=== PATIENT | female | born 1935 | race Caucasian/White ===

== ENCOUNTER 2020-12-21 23:19 | Emergency (ER) | payer MEDICARE, SELFPAY ==
[2020-12-21 23:24] VITALS: BP 145/57; PULSE 75; RESP 17; TEMP 36.6; O2SAT 97; BMI 36.6
--- NOTE | 2020-12-21 23:48 | XRR_ITS ---
PROCEDURE INFORMATION: Exam: XR Chest Exam date and time: 12/21/2020 11:48 PM Age: 85 years old Clinical indication: Dyspnea TECHNIQUE: Imaging protocol: XR of the chest. Views: 1 view. COMPARISON: CR Chest 1 [place] [id number] 11/19/2014 1:07 PM FINDINGS: Lungs: Unremarkable. No consolidation. Pleural spaces: Unremarkable. No pleural effusion. No pneumothorax. Heart/Mediastinum: Unremarkable. No cardiomegaly. Bones/joints: Unremarkable. Other findings: Stable postoperative changes over the right shoulder. XR/XR chest 1V portable [id number] IMPRESSION: No acute findings.
--- NOTE | 2020-12-21 23:48 | ED_ITS ---
HPI - General Adult General: Chief complaint: General Medical Stated complaint: SOB/HYPOGLYCEMIA Time Seen by Provider: 12/21/20 23:44 History of Present Illness: HPI narrative: Patient arrives via ambulance with complaint of bronchitis. Blood sugar got down in the 70s earlier today. Patient says she has been eating good since she had not felt well. She says she is on antibiotics and steroids presently. Patient has no complaints of shortness of breath. Sugars 46 when EMS arrived. Onset (ago): day(s) Associated symptoms: Reports no associated symptoms; Deny chest pain, dyspnea, headache(s), nausea, rash or vomiting Review of Systems Const: Denies: fever(s), chills or body aches Eyes: Denies: change in vision or blurry vision ENMT: Denies: throat pain or nasal congestion Card: Denies: chest pain or dyspnea on exertion Resp: Reports: non-productive cough; Denies: dyspnea or productive cough GI: Denies: abdominal pain, nausea or vomiting Musc: Denies: extremity pain Skin/Breast: Denies: rash Neuro: Denies: headache(s) Psych: Denies: anxiety or depression Endo: Reports: other (Low blood sugar today and down in 70s.) Esvin/Lymph: Denies: easy bruising Physical Exam Const: COMMON NORMALS: no acute distress, average body habitus and patient oriented x3 HENMT: COMMON NORMALS: normocephalic HEAD & SCALP: normal to inspection and normocephalic FACE & SINUS: normal facial exam Eye: COMMON NORMALS: conjunctivae normal GENERAL EYE: appearance normal, both eyes and all related structures CONJUNCTIVA: Yes conjunctivae normal Neck/C-Spine: COMMON NORMALS: no JVD Chest: COMMONS NORMALS: normal inspection of the chest Resp: COMMON NORMALS: normal respiratory effort and clear to auscultation bilaterally AUSCULTATION: clear to auscultation bilaterally Cardio: COMMON NORMALS: no JVD, regular rate and regular rhythm RATE: regular rate RHYTHM: regular rhythm GI: COMMON NORMALS: Normal to inspection, nondistended, normoactive bowel sounds present Extremity: COMMON NORMALS: normal to inspection and full ROM Neuro: COMMON NORMALS: patient oriented x3 Course Vital Signs: Vital signs: Vital Signs Temperature 97.8 F 12/21/20 23:24 Pulse Rate 75 12/21/20 23:24 Respiratory Rate 17 12/21/20 23:24 Blood Pressure 145/57 12/21/20 23:24 Pulse Oximetry 97 12/21/20 23:24 MDM - General Adult MDM Narrative: Medical decision making narrative: Labs not crossed over into the system for some reason. Reviewed labs with Dr. Momin. Patient does have chronic renal problems creatinine BUN same as it was back in 94. Patient does not appear dehydrated. Blood sugar 68. Patient's was 40 some at home. Patient not eating well since diagnosis of bronchitis. Patient says she feels fine. Says food does not taste good. Will try steroid to help increase appetite increase sugar. Hold insulin for present and check sugars 4 times a day. Lab Data: Labs: Lab Results 12/21/20 12/21/20 Range/Units 00:43 00:43 WBC 9.1 (4.0-10.0) 10^3/ uL RBC 3.41 L (4.1-5.3) 10^6/u L Hgb 10.0 L (11.5-15.3) g/dL Hct 32.3 L (37.0-47.0) % MCV 94.7 (81-99) fL MCH 29.3 (28.0-34.0) pg MCHC 31.0 (30.0-36.0) g/dL RDW 14.6 (12.1-15.1) % Plt Count 300 (130-400) 10^3/c mm MPV 9.5 (7.4-10.4) fL Neut % (Auto) 81.2 % Lymph % (Auto) 13.1 % [place] % (Auto) 3.7 % Eos % (Auto) 0.8 % Baso % (Auto) 0.8 % Neut # (Auto) 7.42 (1.8-7.7) 10^3/u L Lymph # (Auto) 1.2 (0.8-4.8) 10^3/u L [place] # (Auto) 0.3 (0.2-0.9) 10^3/u L Eos # (Auto) 0.1 (0.0-0.8) 10^3/u L Baso # (Auto) 0.1 (0.0-0.1) 10^3/u L Nucleated RBC % (a uto) 0 % Nucleated RBCs # 0.0 /100WBC Sodium 132 L (136-145) mmol/L Potassium 5.3 H (3.5-5.1) mmol/L Chloride 102 (98-107) mmol/L Carbon Dioxide 20 L (22-29) mmol/L Anion Gap 15.3 (5-19) BUN 33 H (8-23) mg/dL Creatinine 2.1 H (0.5-0.9) mg/dL GFR Calculation Not Reportable Glucose 68 (65-115) mg/dL Calculated Osmolal ity 280 L (285-295) mOsm/k g Calcium 8.1 L (8.5-10.5) mg/dL Discharge Plan Discharge Patient Disposition: Home Clinical Impression: Bronchitis, Poor appetite Chronic renal failure Qualifiers: Chronic kidney disease stage: stage 2 (mild) Qualified Code(s): N18.2 - Chronic kidney disease, stage 2 (mild) Condition: Stable Prescriptions: New dexamethasone 6 mg tablet 6 mg PO DAILY Qty: 7 RF: 0 Discharge Orders: Discharge ED (Routine); Ordered 12/22/20 Ordered By: Antoni Murdock Referrals: Joaquin Paulino MD [Primary Care Provider] - Discharge Diet: As Directed Discharge Activity: Increase activity as tolerated Patient Instructions: Diabetic Hypoglycemia (ED), Acute Bronchitis (ED) Activity Restrictions/Additional Instructions: Hold insulin until started eating better. Check sugars 3-4 times a day. Increase carbohydrates in meals. Give medication directed. Follow-up Dr. Paulino this week. Coding Level of Care Code ED Granite Fabricator for Chg Fwd Exam Comprehensive
[2020-12-22] VITALS: BP 116/85; O2SAT 100
[2020-12-22 00:41] VITALS: BP 150/61; O2SAT 96
[2020-12-22 00:49] LABS: Basophils # 0.1 10^3/uL (0.0-0.1); Basophils % 0.8 %; Eosinophils # 0.1 10^3/uL (0.0-0.8); Eosinophils % 0.8 %; Hematocrit 32.3 % (37.0-47.0); Lymphocytes # 1.2 10^3/uL (0.8-4.8); Lymphocytes % 13.1 %; Mean Corpuscular Hemoglobin 29.3 pg (28.0-34.0); Mean Corpuscular Volume 94.7 fL (81-99); Mean Platelet Volume 9.5 fL (7.4-10.4); Monocytes # 0.3 10^3/uL (0.2-0.9); Monocytes % 3.7 %; Neutrophils # 7.42 10^3/uL (1.8-7.7); Neutrophils % 81.2 %; Nucleated Red Blood Cells % 0 %; Platelet Count 300 10^3/cmm (130-400); Red Blood Count 3.41 10^6/uL (4.1-5.3); Red Cell Distribution Width 14.6 % (12.1-15.1); White Blood Count 9.1 10^3/uL (4.0-10.0)
[2020-12-22 01:11] VITALS: BP 166/77; O2SAT 95
[2020-12-22 01:19] LABS: Anion Gap 15.3 (5-19); Blood Urea Nitrogen 33 mg/dL (8-23); Calcium 8.1 mg/dL (8.5-10.5); Carbon Dioxide 20 mmol/L (22-29); Chloride 102 mmol/L (98-107); Glucose 68 mg/dL (65-115); Osmolality Calculated 280 mOsm/kg (285-295); Potassium 5.3 mmol/L (3.5-5.1); Sodium 132 mmol/L (136-145)
[2020-12-22 01:41] VITALS: BP 165/80; O2SAT 96
[2020-12-22 02:00] VITALS: BP 141/89; O2SAT 96
[2020-12-22] MEDS: dexamethasone 4 mg Tablet 10 MG PO (02:10)
[2020-12-22 03:34] VITALS: BP 141/89; O2SAT 96
[2020-12-22 07:19] LABS: Glucose Point of Care 89 mg/dL (70-110)
== END 2020-12-22 02:10 | disposition home or self-care (01) ==
PROVIDERS: Emergency Provider Nurse Practitioner Family; PCP Family Medicine
DX: J40 Bronchitis, not specified as acute or chronic (principal); R63.0 Anorexia; N18.2 Chronic kidney disease, stage 2 (mild)
CPT/HCPCS: 36416; 71045; 80048; 82962; 85025; 99283; J8540

== ENCOUNTER 2020-12-26 00:28 | Observation (INO) | payer MEDICARE, SELFPAY ==
[2020-12-26] VITALS (10 sets, daily range): BP systolic 124–186; BP diastolic 81–105; PULSE 71–113; RESP 18–20; TEMP 36.3–37.1; O2SAT 95–100; BMI 36.6
--- NOTE | 2020-12-26 00:34 | ECG_ITS ---
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 Measurements Intervals [place] Rate: 86 P: 70 [place]: 196 QRS: -43 QRSD: 117 T: 34 QT: 378 QTc: 454 Interpretive Statements SINUS RHYTHM MARKED LEFT AXIS DEVIATION [QRS AXIS < -30] PATTERN CONSISTENT WITH PULMONARY DISEASE MODERATE INTRAVENTRICULAR CONDUCTION DELAY [105+ ms QRS DURATION, 80+ ms Q/S IN V1/V2, NO Q AND 60+ ms R IN I/aVL/V5/V6] MINIMAL ST DEPRESSION [0.025+ mV ST DEPRESSION] WARNING: DATA QUALITY MAY AFFECT INTERPRETATION No previous ECG available for comparison Electronically Signed On 12-26-2020 14:54:29 CDT by Gretel Hall M.D. [id number]
--- NOTE | 2020-12-26 00:34 | XRR_ITS ---
PROCEDURE INFORMATION: Exam: XR Chest Exam date and time: 12/26/2020 12:34 AM Age: 85 years old Clinical indication: Shortness of breath; Prior surgery; Surgery type: Shoulder; Patient HX: SOB; Additional info: Cough TECHNIQUE: Imaging protocol: XR of the chest. Views: 1 view. COMPARISON: CR (CHEST, ) 12/22/2020 12:01 AM FINDINGS: Lungs: There are some increased linear opacities predominately within the lower hemithoraces, left slightly more prominent than right likely representing atelectasis. An interstitial pneumonitis cannot be entirely excluded. Pleural spaces: Unremarkable. No pleural effusion. No pneumothorax. Heart/Mediastinum: Unremarkable. No cardiomegaly. Bones/joints: Status post open reduction internal fixation fracture proximal right humerus appearing stable compared with 12/22/2020. XR/XR chest 1V portable [id number] IMPRESSION: 1.. Probable bilateral basilar atelectasis although an interstitial pneumonitis cannot be entirely excluded.
--- NOTE | 2020-12-26 00:35 | W.ED.AMS ---
HPI - Altered Mental Status General: Chief Complaint: Altered Mental Status Stated Complaint: low bg Time Seen by Provider: 12/26/20 00:31 History of Present Illness: HPI narrative: This patient is an 85-year-old female who presents to the emergency department with complaint of low glucose. Patient has a history of insulin-dependent diabetes but was told to stop her insulin at home because it is difficult to maintain a proper glucose level. Patient has been having tendency to getting hypoglycemic. EMS states that they gave her some oral glucose due to mental status change and immediately awakened and was at her normal baseline. States when they checked her glucose after this her glucose was 87. Upon arrival to the emergency department glucose was down to 65. Patient was seen in the emergency department 4 days ago with a similar complaint at that time with hypoglycemia. We will do medical evaluation treat as needed MD complaint: confusion Onset (ago): minute(s) Severity: similar to previous episodes Associated symptoms: Deny depression Review of Systems General: Reports: 10 or more systems reviewed and unremarkable except in HPI and below Const: Denies: fever(s), chills, body aches or fatigue Eyes: Denies: change in vision or blurry vision ENMT: Denies: throat pain, hoarseness or mouth pain Card: Denies: chest pain, palpitations, irregular heart rhythm, edema, swelling of feet/ankles or lightheadedness Resp: Denies: dyspnea, productive cough, non-productive cough, wheezing or pain on inspiration GI: Denies: abdominal pain, nausea or vomiting : Denies: flank pain, difficulty voiding, dysuria, urinary frequency, urinary urgency or urinary hesitancy Musc: Denies: neck pain, back pain, extremity pain, extremity swelling, joint pain, joint swelling, joint redness, joint warmth or limited range of motion Skin/Breast: Denies: rash, pruritus, erythema or skin tenderness Neuro: Denies: headache(s), numbness in extremities or weakness in extremities Psych: Denies: anxiety or depression Physical Exam Const: COMMON NORMALS: no acute distress, average body habitus, patient oriented x3, no limitations, healthy appearing, alert and well nourished HENMT: COMMON NORMALS: normocephalic, atraumatic, hearing grossly normal bilaterally, external ears normal, EAC's normal, TM's normal bilaterally, Normal external nose present, Normal nasal mucous membranes and turbinates present, moist oral mucous membranes, oropharynx normal, dentition normal and gingiva normal HEAD & SCALP: normocephalic and atraumatic NOSE: Normal external nose present and Normal nasal mucous membranes and turbinates present EXTERNAL EAR: Yes external ears normal EXTERNAL AUDITORY CANAL: EAC's normal TYMPANIC MEMBRANE: TM's normal bilaterally Neck/C-Spine: COMMON NORMALS: full ROM, no lymphadenopathy, supple, no meningeal signs, no JVD, Thyroid normal and No carotid bruits THYROID: Thyroid normal Chest: COMMONS NORMALS: normal inspection of the chest, normal palpation of entire chest wall, normal inspection of the breasts and normal palpation of the breasts Resp: COMMON NORMALS: normal respiratory effort, No retractions, No use of accessory muscles, clear to auscultation bilaterally and percussion normal AUSCULTATION: clear to auscultation bilaterally PERCUSSION: percussion normal Cardio: COMMON NORMALS: no JVD, regular rate, regular rhythm, S1 normal heart sound present, S2 normal heart sound present, No gallops present (Cardio), No clicks present (Cardio), No murmurs present (Cardio), No rub (Cardio) and Peripheral pulses 2+ throughout RATE: regular rate RHYTHM: regular rhythm HEART SOUNDS: S1 normal heart sound present and S2 normal heart sound present PERIPHERAL PULSES: Peripheral pulses 2+ throughout GI: COMMON NORMALS: Normal to inspection, nondistended, normoactive bowel sounds present, Soft to palpation, non-tender, No hepatosplenomegaly present, no masses and no bruits PALPATION: Yes Soft to palpation and Yes No hepatosplenomegaly present Back/Pelvis: COMMON NORMALS: thoracic and lumbar spine normal to inspection, no thoracic nor lumbar tenderness, thoraco-lumbar ROM normal and straight leg raise negative bilaterally Extremity: COMMON NORMALS: normal to inspection, full ROM, capillary refill normal, no joint enlargement, no clubbing, cyanosis or edema, no calf tenderness and no pedal edema Neuro: COMMON NORMALS: patient oriented x3 SENSORIUM/ORIENTATION: Yes alert MENINGEAL SIGNS: Yes no meningeal signs Course Consultations: Consultation #1: Discussed at length with hospitalist. He is agreed to admit the patient for further observation due to hypoglycemia. Patient stable at this time. He will see patient write additional orders Time: 00:55 Vital Signs: Vital signs: Vital Signs Temperature 98.7 F 12/26/20 01:26 Pulse Rate 80 12/26/20 02:02 Respiratory Rate 20 H 12/26/20 02:02 Blood Pressure 162/100 12/26/20 02:02 Pulse Oximetry 99 12/26/20 02:02 MDM - Altered Mental Status MDM Narrative: Medical decision making narrative: This patient is an 85-year-old female who presents to the emergency department with complaint of low glucose. Patient has a history of insulin-dependent diabetes but was told to stop her insulin at home because it is difficult to maintain a proper glucose level. Patient has been having tendency to getting hypoglycemic. EMS states that they gave her some oral glucose due to mental status change and immediately awakened and was at her normal baseline. States when they checked her glucose after this her glucose was 87. Upon arrival to the emergency department glucose was down to 65. Patient was seen in the emergency department 4 days ago with a similar complaint at that time with hypoglycemia. Discussed at length with hospitalist. He is agreed to admit the patient for further observation due to hypoglycemia. Patient stable at this time. He will see patient write additional orders Lab Data: Labs: Lab Results 12/26/20 12/26/20 Range/Units 00:35 00:35 WBC Cancelled Corrected WBC Cancelled RBC Cancelled Hgb Cancelled Hct Cancelled MCV Cancelled MCH Cancelled MCHC Cancelled RDW Cancelled Plt Count Cancelled MPV Cancelled Gran % Cancelled Neut % (Auto) Cancelled Lymph % (Auto) Cancelled [place] % (Auto) Cancelled Eos % (Auto) Cancelled Baso % (Auto) Cancelled Neut # (Auto) Cancelled Lymph # (Auto) Cancelled [place] # (Auto) Cancelled Eos # (Auto) Cancelled Baso # (Auto) Cancelled Absolute Gran (aut o) Cancelled Nucleated RBC % (a uto) Cancelled Nucleated RBCs # Cancelled Sodium 137 (136-145) mmol/L Potassium 5.6 H (3.5-5.1) mmol/L Chloride 106 (98-107) mmol/L Carbon Dioxide 20 L (22-29) mmol/L Anion Gap 16.6 (5-19) BUN 40 H (8-23) mg/dL Creatinine 2.2 H (0.5-0.9) mg/dL GFR Calculation Not Reportable Glucose 60 L (65-115) mg/dL Calculated Osmolal ity 292 (285-295) mOsm/k g Calcium 8.4 L (8.5-10.5) mg/dL Total Bilirubin 0.4 (0.15-1.2) mg/dL AST 14 (0-32) U/L ALT 6 (0-33) U/L Alkaline Phosphata se 132 H (35-105) IU/L Total Protein 6.2 L (6.6-8.7) g/dL Albumin 3.4 L (3.5-5.2) g/dL Globulin 2.8 (1.3-4.6) g/dL EKG Data^: EKG 1: Attestation: I personally reviewed and interpreted this EKG as follows: EKG interpretation date: 12/26/20 EKG interpretation time: 00:36 Prior EKG tracings: not available for review Interpretation: Sinus rhythm heart rate 86 interventricular conduction delay. Nonspecific ST changes. Left axis deviation. Discharge Plan Discharge Patient Disposition: Placed in Observation Admit Provider: Willi Pool Clinical Impression: Acute metabolic encephalopathy due to hypoglycemia, Chronic renal insufficiency Coding Level of Care Code ED Inspector And Hand Packager for Chg Fwd Exam Comprehensive
[2020-12-26] MEDS: dextrose 50% syringe 50 mL 25 ML IVP (00:39)
[2020-12-26 00:55] LABS: Alanine Aminotransferase 6 U/L (0-33); Albumin Level 3.4 g/dL (3.5-5.2); Alkaline Phosphatase 132 IU/L (35-105); Aspartate Amino Transferase 14 U/L (0-32); Blood Urea Nitrogen 40 mg/dL (8-23); Calcium 8.4 mg/dL (8.5-10.5); Carbon Dioxide 20 mmol/L (22-29); Chloride 106 mmol/L (98-107); Globulin 2.8 g/dL (1.3-4.6); Glucose 60 mg/dL (65-115); Osmolality Calculated 292 mOsm/kg (285-295); Sodium 137 mmol/L (136-145); Total Bilirubin 0.4 mg/dL (0.15-1.2); Total Protein 6.2 g/dL (6.6-8.7)
[2020-12-26 00:58] LABS: Anion Gap 16.6 (5-19); Potassium 5.6 mmol/L (3.5-5.1)
--- NOTE | 2020-12-26 01:13 | PC.NURSE ---
FS glucose 113
[2020-12-26 02:00] LABS: Basophils # 0.1 10^3/uL (0.0-0.1); Basophils % 0.7 %; Eosinophils # 0.2 10^3/uL (0.0-0.8); Eosinophils % 1.9 %; Hematocrit 35.4 % (37.0-47.0); Hemoglobin 10.7 g/dL (11.5-15.3); Lymphocytes % 18.3 %; Mean Corpuscular HGB Conc 30.2 g/dL (30.0-36.0); Mean Corpuscular Hemoglobin 28.9 pg (28.0-34.0); Mean Corpuscular Volume 95.7 fL (81-99); Mean Platelet Volume 10.2 fL (7.4-10.4); Monocytes # 0.7 10^3/uL (0.2-0.9); Monocytes % 6.1 %; Neutrophils # 7.89 10^3/uL (1.8-7.7); Neutrophils % 72.6 %; Nucleated Red Blood Cells % 0 %; Platelet Count 311 10^3/cmm (130-400); Red Cell Distribution Width 15.1 % (12.1-15.1); White Blood Count 10.9 10^3/uL (4.0-10.0)
--- NOTE | 2020-12-26 02:21 | PM.HP ---
Providers/Chief Complaint Admitting Physician: Willi Pool Primary Care Provider: Joaquin Paulino MD Chief Complaint: low bg History of Present Illness 85-year-old female with a past medical history significant for chronic obstructive pulmonary disease, hypertension, degenerative arthritis, gastroesophageal reflux disease, chronic back pain, coronary artery disease, chronic stage 3 kidney disease with a baseline creatinine around 2.0 and diabetes mellitus on metformin, glimepiride who was recently seen in the emergency room for for bronchitis and hypoglycemia on 12/21/2020 who is now again presented to the hospital with low blood sugars. Patient was not able to provide much history stating that she felt fine and was not sure why her daughter called EMS. Of note during previous ER visit patient was started on Decadron 6 mg daily for 7 days. Patient had been previously taken off of insulin which she states she has not been using. Blood sugar on arrival was noted to be 60 patient was given dextrose. Remainder of laboratory workup showed a WBC of 10.9, hemoglobin of 10.7, hematocrit 35.4 and a platelet count of 311. Sodium 137, potassium 5.6, chloride 106, bicarb 20, BUN 40 and creatinine 2.2. Previous creatinine on 12/21 was 2.1. Review of Systems General: Reports: ROS unobtainable due to mental status Medications/Allergies Home Medications Medication Instructions Recorded Confirmed Last Taken Type dexamethasone 6 mg PO DAILY #7 tab 12/22/20 Unknown Rx cetirizine 10 mg PO DAILY 12/26/20 12/26/20 Unknown History donepezil 5 mg PO DAILY 12/26/20 12/26/20 Unknown History doxycycline hyclate 100 mg PO BID 12/26/20 12/26/20 Unknown History gabapentin 200 mg PO BEDTIME 12/26/20 12/26/20 Unknown History glimepiride 2 mg PO DAILY 12/26/20 12/26/20 Unknown History meloxicam 15 mg PO DAILY 12/26/20 12/26/20 Unknown History metformin 500 mg PO BID 12/26/20 12/26/20 Unknown History mirtazapine 15 mg PO BEDTIME 12/26/20 12/26/20 Unknown History montelukast 10 mg PO DAILY 12/26/20 12/26/20 Unknown History nitrofurantoin macrocrystal 100 mg PO DAILY 12/26/20 12/26/20 Unknown History oxybutynin chloride 10 mg PO BEDTIME 12/26/20 12/26/20 Unknown History pantoprazole 40 mg PO BID 12/26/20 12/26/20 Unknown History triamcinolone acetonide 1 applic TOPICAL BID PRN 12/26/20 12/26/20 Unknown History Allergies Allergy/AdvReac Type Severity Reaction Status Date / Time Latex, Natural Rubber Allergy Unknown Verified 12/26/20 01:26 PFSH Acute PFSH: Medical History (Updated 12/26/20 @ 05:37 by Willi Pool MD) Chronic back pain Chronic kidney disease, stage 3 Chronic renal failure COPD (chronic obstructive pulmonary disease) Gastroesophageal reflux disease Hypertension Vitals/I&O/Wt Last Vital Signs Temp 98.1 F 12/26/20 04:00 Pulse 110 H 12/26/20 04:00 Resp 20 H 12/26/20 04:00 BP 151/89 12/26/20 04:00 Pulse Ox 97 12/26/20 04:00 Weight last 48 hrs Weight 90.718 kg Physical Exam Narrative: EXAM NARRATIVE: General- pleasantly confused , no apparent distress , alert oriented to person and place HEENT- grossly unremarkable CVS- normal sinus rhythm Chest- nonlabored respiration Abdomen nontender nondistended Extremities- no edema Data : 12/26/20 01:55 12/26/20 00:35 A&P Assessment and plan (1) Acute metabolic encephalopathy due to hypoglycemia: Status: Acute (2) Diabetes mellitus with hypoglycemia: Status: Acute (3) Hyperkalemia: Status: Acute (4) DVT prophylaxis: Status: Acute Additional A&P Information Persistent hypoglycemia Will discontinue metformin and glimepiride for now Monitor blood sugar q.1 hour x4 May need to add dextrose to IV fluids Repeat labs in a.m. new Hyperkalemia Potassium 5.6 Kayexalate 15 g p.o. x1 Calcium gluconate 1 g IV x1 given Repeat BMP in a.m. Chronic kidney disease Creatinine 2.2 Close to baseline of 2.0 Renally dose medications to Repeat lab work in a.m. Chronic obstructive pulmonary disease Not currently in exacerbation Nebulized treatments as needed Supplemental oxygen as needed Additional medical history Hypertension Gastroesophageal reflux disease Coronary artery disease Chronic back pain DVT prophylaxis Heparin 5000 units q.12 hours Attestations Medical Necessity Statement*: anticipate less than 2 midnight stay in hospital for evaluation and treatment of hypoglycemia and hyperkalemia Time Spent in Patient Care: Greater than 35 minutes Coding Level of Care Code Acute It Sales Representative for [employer] Fwd Diagnoses Acute metabolic encephalopathy due to hypoglycemia G93.41; E16.2 Diabetes mellitus with hypoglycemia E11.649 Hyperkalemia E87.5 DVT prophylaxis Z29.9
[2020-12-26 02:37] LABS: Glucose Point of Care 103 mg/dL (70-110)
[2020-12-26] MEDS: heparin 5,000 unit/mL INJ 1 mL 5000 UNIT SUBCUT ×2 (03:18→13:06)
[2020-12-26 03:32] LABS: Glucose Point of Care 102 mg/dL (70-110)
[2020-12-26] MEDS: sodium polystyrene sulfonate 15 gm/60 mL Btl PO ×2 (05:18→18:25)
[2020-12-26 06:34] LABS: Glucose Point of Care 120 mg/dL (70-110)
[2020-12-26 06:41] LABS: Glucose Point of Care 115 mg/dL (70-110)
[2020-12-26 08:30] LABS: Glucose Point of Care 125 mg/dL (70-110)
[2020-12-26] MEDS: montelukast sodium 10 mg Tablet PO (09:05)
[2020-12-26] MEDS: donepezil 5 MG Tablet PO (09:05)
[2020-12-26] MEDS: pantoprazole DR 40 mg Tablet PO (09:05)
--- NOTE | 2020-12-26 09:18 | PC.NURSE ---
Patient working with OT and rated right side pain at 3/10 when trying to sit up.
--- NOTE | 2020-12-26 11:04 | P.PN_ITS ---
Subjective Subjective: Interval history: Patient was seen and examined this morning, currently she is alert oriented x3, she was complaining of fatigue and generalized weakness. Medications: Reviewed: Yes Vitals/I&O/Wt Last Vital Signs Temp 98.7 F 12/26/20 08:00 Pulse 113 H 12/26/20 08:00 Resp 18 12/26/20 08:00 BP 124/85 12/26/20 08:00 Pulse Ox 100 12/26/20 08:00 12/25/20 12/26/20 12/26/20 22:59 06:59 14:59 Intake Total 240 / 240 Balance 240 / 240 Weight last 48 hrs Weight 90.718 kg Weight 90.718 kg Physical Exam Const: COMMON NORMALS: patient oriented x3 HENMT: COMMON NORMALS: normocephalic and atraumatic HEAD & SCALP: normocephalic and atraumatic Resp: COMMON NORMALS: clear to auscultation bilaterally AUSCULTATION: clear to auscultation bilaterally Cardio: COMMON NORMALS: regular rate, regular rhythm, S1 normal heart sound present, S2 normal heart sound present, No gallops present (Cardio), No murmurs present (Cardio), No rub (Cardio) and Peripheral pulses 2+ throughout RATE: regular rate RHYTHM: regular rhythm HEART SOUNDS: S1 normal heart sound present and S2 normal heart sound present PERIPHERAL PULSES: Peripheral pulses 2+ throughout GI: COMMON NORMALS: Normal to inspection, nondistended, normoactive bowel sounds present, Soft to palpation, non-tender, No hepatosplenomegaly present and no masses AUSCULTATION: Yes normoactive bowel sounds PALPATION: Yes Soft to palpation and Yes No hepatosplenomegaly present RECTAL EXAM: deferred Extremity: COMMON NORMALS: no clubbing, cyanosis or edema and no pedal edema Neuro: COMMON NORMALS: patient oriented x3 Data : 12/26/20 01:55 12/26/20 00:35 A&P Assessment and plan (1) Acute metabolic encephalopathy due to hypoglycemia: Status: Acute (2) Diabetes mellitus with hypoglycemia: Status: Acute (3) Hyperkalemia: Status: Acute (4) DVT prophylaxis: Status: Acute Additional A&P Information Persistent hypoglycemia Will discontinue metformin and glimepiride for now Monitor blood sugar q.1 hour x4 May need to add dextrose to IV fluids Repeat labs in a.m. new Hyperkalemia Potassium 5.6 Kayexalate 15 g p.o. x1 Calcium gluconate 1 g IV x1 given Repeat BMP in a.m. Chronic kidney disease Creatinine 2.2 Close to baseline of 2.0 Renally dose medications to Repeat lab work in a.m. Chronic obstructive pulmonary disease Not currently in exacerbation Nebulized treatments as needed Supplemental oxygen as needed Additional medical history Hypertension Gastroesophageal reflux disease Coronary artery disease Chronic back pain DVT prophylaxis Heparin 5000 units q.12 hours Attestations Medical Necessity Statement*: Patient is to be hospital for management of metabolic encephalopathy secondary to hypoglycemia Coding Level of Care Code Acute [employer] for [place] Diagnoses Acute metabolic encephalopathy due to hypoglycemia G93.41; E16.2 Diabetes mellitus with hypoglycemia E11.649 Hyperkalemia E87.5 DVT prophylaxis Z29.9
[2020-12-26 11:11] LABS: Glucose Point of Care 106 mg/dL (70-110)
--- NOTE | 2020-12-26 11:21 | PC.PHAR ---
pt states her daughter takes care of her medications-no answer when called pts daughter-medications entered are meds that show have been filled recently on ext med history
--- NOTE | 2020-12-26 17:05 | PC.RESP ---
PULMONARY REHAB INFORMATION SENT TO PATIENT.
[2020-12-26 17:12] LABS: Glucose Point of Care 124 mg/dL (70-110)
[2020-12-26] MEDS: amlodipine 10 mg Tablet PO (17:58)
[2020-12-26] MEDS: sodium chloride 0.9% 1,000 ML 75 ML IV (17:59)
[2020-12-26 19:44] LABS: Glucose Point of Care 151 mg/dL (70-110)
[2020-12-26] MEDS: gabapentin 100 mg Capsule 200 MG PO (21:12)
[2020-12-26] MEDS: mirtazapine 15 mg Tablet PO (21:12)
[2020-12-27 02:22] LABS: Glucose Point of Care 94 mg/dL (70-110)
[2020-12-27 02:22] LABS: Glucose Point of Care 113 mg/dL (70-110)
[2020-12-27] MEDS: heparin 5,000 unit/mL INJ 1 mL 5000 UNIT SUBCUT (03:27)
[2020-12-27 04:00] VITALS: BP 137/77; PULSE 102; RESP 18; TEMP 36.8; O2SAT 97
[2020-12-27 06:39] LABS: Glucose Point of Care 103 mg/dL (70-110)
[2020-12-27 07:11] LABS: Basophils # 0.1 10^3/uL (0.0-0.1); Basophils % 1.3 %; Eosinophils # 0.9 10^3/uL (0.0-0.8); Eosinophils % 8.2 %; Hemoglobin 10.8 g/dL (11.5-15.3); Lymphocytes # 3.4 10^3/uL (0.8-4.8); Lymphocytes % 33.1 %; Mean Corpuscular Hemoglobin 28.9 pg (28.0-34.0); Mean Corpuscular Volume 96.3 fL (81-99); Mean Platelet Volume 10.4 fL (7.4-10.4); Monocytes # 0.8 10^3/uL (0.2-0.9); Monocytes % 7.8 %; Neutrophils # 5.12 10^3/uL (1.8-7.7); Neutrophils % 49.2 %; Nucleated Red Blood Cells % 0 %; Platelet Count 307 10^3/cmm (130-400); Red Blood Count 3.74 10^6/uL (4.1-5.3); Red Cell Distribution Width 15.5 % (12.1-15.1); White Blood Count 10.4 10^3/uL (4.0-10.0)
[2020-12-27 07:38] LABS: Blood Urea Nitrogen 31 mg/dL (8-23); Calcium 8.1 mg/dL (8.5-10.5); Carbon Dioxide 19 mmol/L (22-29); Chloride 109 mmol/L (98-107); Glucose 111 mg/dL (65-115); Osmolality Calculated 295 mOsm/kg (285-295); Sodium 139 mmol/L (136-145)
[2020-12-27 07:42] VITALS: BP 137/82; PULSE 83; RESP 18; TEMP 36.8; O2SAT 97
[2020-12-27 07:53] LABS: Anion Gap 15.6 (5-19); Potassium 4.6 mmol/L (3.5-5.1)
[2020-12-27] MEDS: montelukast sodium 10 mg Tablet PO (09:48)
[2020-12-27] MEDS: pantoprazole DR 40 mg Tablet PO (09:48)
[2020-12-27] MEDS: donepezil 5 MG Tablet PO (09:48)
[2020-12-27] MEDS: citalopram 20 mg Tablet PO (09:48)
[2020-12-27] MEDS: amlodipine 10 mg Tablet PO (09:48)
[2020-12-27 10:28] VITALS: PULSE 95; RESP 18; O2SAT 97
[2020-12-27] MEDS: ipratropium-albuterol 3 mL Neb INHALATION (10:28)
[2020-12-27 10:35] VITALS: PULSE 94
--- NOTE | 2020-12-27 10:50 | P.DS_ITS ---
Discharge Providers Date of Admission: 12/26/20 00:53 Date of Discharge: December 27, 2020 Attending Provider at Admission: Willi Pool Attending Provider at Discharge: Jeramy Burton MD Primary Care Provider: Joaquin Paulino MD Diagnoses at Discharge Discharge Diagnosis (1) Acute metabolic encephalopathy due to hypoglycemia: Status: Resolved (2) Diabetes mellitus with hypoglycemia: Status: Acute (3) Hyperkalemia: Status: Resolved Reason for Visit Reason for Visit: low bg Hospital Course Hospital Course 85-year-old female with past medical history significant for chronic obs tructive pulmonary disease, hypertension, degenerative arthritis, gastroesophageal reflux disease, chronic back pain, coronary artery disease, chronic stage 3 kidney disease with a baseline creatinine around 2.0 and diabetes mellitus on metformin, glimepiride who was recently seen in the emergency room for for bronchitis and hypoglycemia on 12/21/2020 who is now again presented to the hospital with low blood sugars.Blood sugar on arrival was noted to be 60 patient was given dextrose. Remainder of laboratory workup showed a WBC of 10.9, hemoglobin of 10.7, hematocrit 35.4 and a platelet count of 311. Sodium 137, potassium 5.6, chloride 106, bicarb 20, BUN 40 and creatinine 2.2. Previous creatinine on 12/21 was 2.1. She was admitted for management of acute encephalopathy likely secondary to hypoglycemia. During the hospital stay blood sugars were monitored, she was encouraged to eat.Blood sugar remained stable. she was also managed for hyperkalemia she received hyperkalemia cocktail. Serum potassium was normal at the time of discharge. Kidney function was left at baseline. At the time of discharge antidiabetic medications were stopped, she has been asked to monitor her blood sugar. Patient responded well to the above medical management, at the time of discharge she was alert, oriented x3 and is being discharged in stable condition she will continue to follow her primary care physician as an outpatient. Physical Exam Const: COMMON NORMALS: patient oriented x3 HENMT: COMMON NORMALS: normocephalic and atraumatic HEAD & SCALP: normocephalic and atraumatic Resp: COMMON NORMALS: clear to auscultation bilaterally AUSCULTATION: clear to auscultation bilaterally Cardio: COMMON NORMALS: regular rate, regular rhythm, S1 normal heart sound present, S2 normal heart sound present, No gallops present (Cardio), No murmurs present (Cardio), No rub (Cardio) and Peripheral pulses 2+ throughout RATE: regular rate RHYTHM: regular rhythm HEART SOUNDS: S1 normal heart sound present and S2 normal heart sound present PERIPHERAL PULSES: Peripheral pulses 2+ throughout GI: COMMON NORMALS: Normal to inspection, nondistended, normoactive bowel sounds present, Soft to palpation, non-tender, No hepatosplenomegaly present and no masses AUSCULTATION: Yes normoactive bowel sounds PALPATION: Yes Soft to palpation and Yes No hepatosplenomegaly present RECTAL EXAM: deferred Extremity: COMMON NORMALS: no clubbing, cyanosis or edema and no pedal edema Neuro: COMMON NORMALS: patient oriented x3 Discharge Data Data Completed and Pending: Completed Studies During Hospitalization Category Date Time Status XR chest 1V mine ble [id number] Stat Exams 12/26/20 00:34 Completed Pending at discharge Category Date Time Status Basic Metabolic P claudia AM LABS Lab 12/28/20 04:00 Ordered Basic Metabolic P claudia AM LABS Lab 12/29/20 04:00 Ordered Complete Blood Co unt w/Auto AM LABS Lab 12/28/20 04:00 Ordered Complete Blood Co unt w/Auto AM LABS Lab 12/29/20 04:00 Ordered Hemoglobin A1C AM LABS Lab 12/27/20 06:05 Received Urinalysis Stat Lab 12/26/20 00:34 Uncollected Labs from last 24 hours 12/27/20 12/27/20 12/27/20 06:32 06:05 06:05 WBC RBC Hgb Hct MCV MCH MCHC RDW Plt Count MPV Neut % (Auto) Lymph % (Auto) [place] % (Auto) Eos % (Auto) Baso % (Auto) Neut # (Auto) Lymph # (Auto) [place] # (Auto) Eos # (Auto) Baso # (Auto) Nucleated RBC % (a uto) Nucleated RBCs # Sodium 139 Potassium 4.6 Chloride 109 H Carbon Dioxide 19 L Anion Gap 15.6 BUN 31 H Creatinine 1.7 H GFR Calculation Not Reportable Glucose 111 POC Glucose 103 Estimat Average Gl ucose Pending Hemoglobin A1c Pending Calculated Osmolal ity 295 Calcium 8.1 L 12/27/20 12/26/20 12/26/20 06:05 19:40 16:58 WBC 10.4 H RBC 3.74 L Hgb 10.8 L Hct 36.0 L MCV 96.3 MCH 28.9 MCHC 30.0 RDW 15.5 H Plt Count 307 MPV 10.4 Neut % (Auto) 49.2 Lymph % (Auto) 33.1 [place] % (Auto) 7.8 Eos % (Auto) 8.2 Baso % (Auto) 1.3 Neut # (Auto) 5.12 Lymph # (Auto) 3.4 [place] # (Auto) 0.8 Eos # (Auto) 0.9 H Baso # (Auto) 0.1 Nucleated RBC % (a uto) 0 Nucleated RBCs # 0.0 Sodium Potassium Chloride Carbon Dioxide Anion Gap BUN Creatinine GFR Calculation Glucose POC Glucose 151 H 124 H Estimat Average Gl ucose Hemoglobin A1c Calculated Osmolal ity Calcium 12/26/20 12/26/20 12/26/20 10:56 01:58 01:13 WBC RBC Hgb Hct MCV MCH MCHC RDW Plt Count MPV Neut % (Auto) Lymph % (Auto) [place] % (Auto) Eos % (Auto) Baso % (Auto) Neut # (Auto) Lymph # (Auto) [place] # (Auto) Eos # (Auto) Baso # (Auto) Nucleated RBC % (a uto) Nucleated RBCs # Sodium Potassium Chloride Carbon Dioxide Anion Gap BUN Creatinine GFR Calculation Glucose POC Glucose 106 94 113 H Estimat Average Gl ucose Hemoglobin A1c Calculated Osmolal ity Calcium Vitals: Last Vital Signs Temp 98.2 F 12/27/20 07:42 Pulse 94 12/27/20 10:35 Resp 18 12/27/20 10:28 BP 137/82 12/27/20 07:42 Pulse Ox 97 12/27/20 10:28 Discharge Plan Discharge Patient Disposition: Home Condition: Stable Prescriptions: Continued donepezil 5 mg tablet 5 mg PO DAILY RF: 0 cetirizine 10 mg tablet 10 mg PO DAILY RF: 0 oxybutynin chloride 10 mg tablet extended release 24hr 10 mg PO BEDTIME RF: 0 triamcinolone acetonide 0.1 % cream 1 applic TOPICAL BID PRN (Reason: Itching) RF: 0 pantoprazole 40 mg tablet,delayed release (DR/EC) 40 mg PO BID RF: 0 montelukast 10 mg tablet 10 mg PO DAILY RF: 0 mirtazapine 15 mg tablet 15 mg PO BEDTIME RF: 0 gabapentin 100 mg capsule 200 mg PO BEDTIME RF: 0 tramadol 50 mg tablet 50 - 100 mg PO QID PRN (Reason: Pain) RF: 0 citalopram 20 mg tablet 20 mg PO DAILY RF: 0 Discontinued metformin 500 mg tablet 500 mg PO BID RF: 0 meloxicam 15 mg tablet 15 mg PO DAILY RF: 0 glimepiride 2 mg tablet 2 mg PO DAILY RF: 0 nitrofurantoin macrocrystal 100 mg capsule 100 mg PO DAILY RF: 0 doxycycline hyclate 100 mg capsule 100 mg PO BID RF: 0 Humulin 70/30 U-100 Insulin 100 unit/mL (70-30) suspension 20 unit SUBCUT BID RF: 0 dexamethasone 6 mg tablet 6 mg PO DAILY Qty: 7 RF: 0 Discharge Orders: Discharge Order (Routine); Ordered 12/27/20 Ordered By: Jeramy Burton Referrals: [facility] [Outside] Joaquin Paulino MD [Primary Care Provider] - 2 weeks Discharge Diet: Regular Discharge Activity: Resume usual activity Patient Instructions: Diabetic Hypoglycemia (GEN), Hyperkalemia (GEN), Opioid Safety Discharge Attestations Time Spent in Discharge Care*: less than 30 min Specific Discharge Activities: educating patient, educating and/or supporting family/caregiver, discussing with pcp/other providers, discussing with behavioral health case manager/social workers/dc planners, documenting/other paperwork and evaluating patient/reviewing data Status at Discharge: Cognitive status at discharge: cognitively intact , Behavioral status at discharge: cooperative , Functional status at discharge: independent ambulation Overall status at discharge: patient is back to baseline Quality Metrics Clinical Quality Measures During this hospital stay, did patient experience: None Coding Level of Care Code Acute [facility] note Diagnoses Acute metabolic encephalopathy due to hypoglycemia G93.41; E16.2 Diabetes mellitus with hypoglycemia E11.649 Hyperkalemia E87.5
[2020-12-27 11:16] VITALS: BP 145/80; PULSE 88; RESP 20; TEMP 36.7; O2SAT 98
[2020-12-27 11:21] LABS: Glucose Point of Care 142 mg/dL (70-110)
[2020-12-27 12:16] LABS: Estmated Average Glucose 134; Hemoglobin A1C 6.3 % (4.0-6.0)
--- NOTE | 2020-12-27 13:01 | PC.OT ---
Patient refused occupational therapy treatment, she said she is going home and doesn't need to do it.
[2020-12-27 15:10] VITALS: BP 145/80; PULSE 88; RESP 20; TEMP 36.7; O2SAT 98
== END 2020-12-27 15:10 | disposition home or self-care (01) ==
LOC: ER 00:54 → MEDSURG 01:14
PROVIDERS: Admitting Provider Hospitalist; Emergency Provider Emergency Medicine; PCP Family Medicine; Visit Provider Internal Medicine
DX: G93.41 Metabolic encephalopathy (principal); E16.2 Hypoglycemia, unspecified; E11.649 Type 2 diabetes mellitus with hypoglycemia without coma; E87.5 Hyperkalemia; J44.9 Chronic obstructive pulmonary disease, unspecified; M19.90 Unspecified osteoarthritis, unspecified site; K21.9 Gastro-esophageal reflux disease without esophagitis; I25.10 Atherosclerotic heart disease of native coronary artery without angina pectoris; E11.22 Type 2 diabetes mellitus with diabetic chronic kidney disease; I12.9 Hypertensive chronic kidney disease with stage 1 through stage 4 chronic kidney disease, or unspecified chronic kidney disease; N18.30 Chronic kidney disease, stage 3 unspecified; Z79.84 Long term (current) use of oral hypoglycemic drugs
CPT/HCPCS: 36416; 71045; 80048; 80053; 82962; 83036; 85025; 93005; 94640; 96361; 96365; 96372; 97165; 99285; G0378; J0610; J1644; J7030

== ENCOUNTER 2021-04-19 19:06 | Inpatient (IN) | payer MEDICARE, SELFPAY ==
[2021-04-19 19:17] VITALS: BP 124/58; PULSE 125; RESP 24; TEMP 36.6; O2SAT 95; BMI 38.7
[2021-04-19 19:23] VITALS: BP 124/58; PULSE 78; RESP 24; O2SAT 95
--- NOTE | 2021-04-19 19:27 | ED_ITS ---
HPI - Altered Mental Status General: Chief Complaint: Altered Mental Status Stated Complaint: Elevated Blood Sugar\ Altered Mental State Time Seen by Provider: 04/19/21 19:22 History of Present Illness: HPI narrative: This patient was brought to the emergency department by her daughter allegedly. The patient states that she is here because her daughter thought her blood sugar was too high. The patient cannot tell me what her blood sugar was. She states she she cannot remember whether she is taking her medications today or not. She denies any pain or discomfort and states that she is thirsty. She does not remember eating or drinking today. She does admit that she has diabetes. She states she has no history of heart disease. No recent fever illness or trauma. Daughter came back to the room and was able to provide additional information and that the patient has been having urinary frequency and burning and dysuria today and seeming a little bit of out of it consistent with similar symptoms she has had in the past with urinary tract infections. No documented fevers at home. Associated symptoms: Deny depression Review of Systems Const: Denies: fever(s), chills or body aches Eyes: Denies: change in vision or blurry vision ENMT: Denies: throat pain or odynophagia Card: Denies: chest pain, palpitations or irregular heart rhythm Resp: Denies: dyspnea, productive cough or non-productive cough GI: Denies: abdominal pain, nausea, vomiting or diarrhea : Denies: flank pain, difficulty voiding, dysuria, urinary frequency or urinary urgency Musc: Denies: neck pain, back pain, extremity pain, extremity swelling or joint pain Skin/Breast: Denies: rash Neuro: Denies: headache(s), numbness in extremities or weakness in extremities Psych: Denies: anxiety, depression, mood swings or panic attacks Endo: Denies: polyuria or polydipsia PFS ED PFSH: Medical History Acute metabolic encephalopathy due to hypoglycemia Chronic back pain Chronic kidney disease, stage 3 Chronic renal failure Chronic renal insufficiency COPD (chronic obstructive pulmonary disease) Diabetes mellitus with hypoglycemia DVT prophylaxis Gastroesophageal reflux disease Hyperkalemia Hypertension Physical Exam Const: COMMON NORMALS: no acute distress and alert ORIENTATION/CONSCIOUSNESS: Yes oriented to person and Yes oriented to place HENMT: COMMON NORMALS: normocephalic and atraumatic HEAD & SCALP: normocephalic and atraumatic Eye: COMMON NORMALS: Equal, round and reactive pupils present, EOMs intact bilaterally and no scleral icterus PUPIL: Yes Equal, round and reactive pup ils present Neck/C-Spine: COMMON NORMALS: full ROM, no lymphadenopathy, supple, no JVD, Thyroid normal and No carotid bruits THYROID: Thyroid normal Lymph: LYMPHATIC: no lymphadenopathy noted Chest: COMMONS NORMALS: normal inspection of the chest Resp: COMMON NORMALS: normal respiratory effort, No retractions, No use of accessory muscles and clear to auscultation bilaterally AUSCULTATION: clear to auscultation bilaterally Cardio: COMMON NORMALS: no JVD, regular rate, regular rhythm and No murmurs present (Cardio) RATE: regular rate RHYTHM: regular rhythm GI: COMMON NORMALS: Normal to inspection, nondistended, normoactive bowel sounds present, Soft to palpation, non-tender and no masses PALPATION: Yes Soft to palpation : COMMON NORMALS: Yes no CVA tenderness BLADDER/KIDNEY EXAM: Yes no CVA tenderness Back/Pelvis: COMMON NORMALS: no CVA tenderness, thoracic and lumbar spine normal to inspection, no thoracic nor lumbar tenderness and thoraco-lumbar ROM normal Extremity: COMMON NORMALS: normal to inspection, full ROM, capillary refill normal, no joint enlargement, no calf tenderness and no pedal edema Neuro: COMMON NORMALS: moves all extremities, no focal motor deficits and no sensory deficits noted SENSORIUM/ORIENTATION: Yes alert, Yes oriented to person and Yes oriented to place SPEECH: speech normal Psych: COMMON NORMALS: mental status grossly normal, Normal thought process present and cooperative THOUGHT PROCESS: Normal thought process present Course Reevaluation(s): Reevaluation #1: The patient is clinically stable. Her daughters are here now and they provided more illuminating discussion. She is apparently been having chills the last 2-3 nights. They state that she is also has some loose stools but no vomiting. They state that she has not been exposed to any infectious disease at they are aware. They are all fully immunized against COVID-19. Consultations: Consultation #1: Discussed with nighttime hospitalist who agreed to see the patient and admit Vital Signs: Vital signs: Vital Signs Temperature 97.9 F 04/19/21 19:17 Pulse Rate 110 H 04/19/21 21:27 Respiratory Rate 20 H 11/14/21 21:27 Blood Pressure 131/57 04/19/21 21:27 Pulse Oximetry 94 04/19/21 21:27 MDM - Altered Mental Status Lab Data: Labs: Lab Results 04/19/21 04/19/21 04/19/21 19:28 21:10 21:10 WBC 41.7 10^3/uL H* 1 0^3/uL (4.0-10.0) RBC 3.31 10^6/uL L 10 ^6/uL (4.1-5.3) Hgb 10.2 g/dL L g/dL (11.5-15.3) Hct 33.0 % L % (37.0-47.0) MCV 99.7 fl H fl (81-99) MCH 30.8 pg pg (28.0-34.0) MCHC 30.9 g/dL g/dL (30.0-36.0) RDW 14.4 % % (12.1-15.1) Plt Count 197 10^3/cmm 10^3 /cmm (130-400) MPV 10.7 fL H fL (7.4-10.4) Neut % (Auto) 91.0 % % Lymph % (Auto) 2.1 % % [place] % (Auto) 2.9 % % Eos % (Auto) 0.0 % % Baso % (Auto) 0.4 % % Neut # (Auto) 37.94 10^3/uL H 1 0^3/uL (1.8-7.7) Lymph # (Auto) 0.9 10^3/uL 10^3/ uL (0.8-4.8) [place] # (Auto) 1.2 10^3/uL H 10^ 3/uL (0.2-0.9) Eos # (Auto) 0.0 10^3/uL 10^3/ uL (0.0-0.8) Baso # (Auto) 0.2 10^3/uL H 10^ 3/uL (0.0-0.1) Nucleated RBC % (a uto) 0 % % Nucleated RBCs # 0.0 /100WBC /100W BC Sodium 133 mmol/L L mmol /L (136-145) Potassium 3.8 mmol/L mmol/L (3.5-5.1) Chloride 104 mmol/L mmol/L (98-107) Carbon Dioxide 13 mmol/L L mmol/ L (22-29) Anion Gap 19.8 H (5-19) BUN 22 mg/dL mg/dL (8-23) Creatinine 2.3 mg/dL H mg/dL (0.5-0.9) GFR Calculation Not Reportable Glucose 278 mg/dL H mg/dL (65-115) POC Glucose 276 mg/dL H mg/dL (70-110) Calculated Osmolal ity 289 mOsm/kg mOsm/ kg (285-295) Calcium 8.8 mg/dL mg/dL (8.5-10.5) Magnesium 1.1 mg/dL L mg/dL (1.7-2.3) Total Bilirubin 0.4 mg/dL mg/dL (0.15-1.2) AST 14 U/L U/L (0-32) ALT 8 U/L U/L (0-33) Alkaline Phosphata se 86 IU/L IU/L (35-105) Total Protein 6.3 g/dL L g/dL (6.6-8.7) Albumin 3.2 g/dL L g/dL (3.5-5.2) Globulin 3.1 g/dL g/dL (1.3-4.6) Urine Color Urine Appearance Urine pH Ur Specific Gravit y Urine Protein Urine Glucose (UA) Urine Ketones Urine Blood Urine Nitrate Urine Bilirubin Urine Urobilinogen Ur Leukocyte Adela ase Urine RBC Urine WBC Ur Squamous Epith Cells Amorphous Sediment Urine Bacteria Fine Granular Cast s Serum Ketones 04/19/21 04/19/21 21:10 21:24 WBC RBC Hgb Hct MCV MCH MCHC RDW Plt Count MPV Neut % (Auto) Lymph % (Auto) [place] % (Auto) Eos % (Auto) Baso % (Auto) Neut # (Auto) Lymph # (Auto) [place] # (Auto) Eos # (Auto) Baso # (Auto) Nucleated RBC % (a uto) Nucleated RBCs # Sodium Potassium Chloride Carbon Dioxide Anion Gap BUN Creatinine GFR Calculation Glucose POC Glucose Calculated Osmolal ity Calcium Magnesium Total Bilirubin AST ALT Alkaline Phosphata se Total Protein Albumin Globulin Urine Color Yellow (Yellow) Urine Appearance Cloudy (CLEAR) Urine pH 5 (5-7) Ur Specific Gravit y 1.015 (1.005-1.030) Urine Protein 2+ H (Negative) Urine Glucose (UA) 2+ H (Normal) Urine Ketones Negative (Negative) Urine Blood 2+ H (Negative) Urine Nitrate Negative (Negative) Urine Bilirubin Neg (Negative) Urine Urobilinogen Norm mg/dL mg/dL (Negative) Ur Leukocyte Daela ase 2+ H (Negative) Urine RBC >100 /hpf H /hpf (0-2) Urine WBC Too numerous to c nt /hpf H /hpf (0-5) Ur Squamous Epith Cells 0-4 /hpf H /hpf (0-5) Amorphous Sediment Not Reportable Urine Bacteria 4+ /hpf H /hpf (NONE) Fine Granular Cast s 5-10 /lpf H /lpf Serum Ketones Negative (Negative) EKG Data^: EKG 1: Attestation: I personally reviewed and interpreted this EKG as follows: (EKG interpretation by computer suggest atrial fibrillation however I believe that her underlying rhythm is sinus tachycardia with frequent unifocal PVCs. Reviewing this tracing compared with past tracings revealed no QRS changes in her underlying rhythm. I do not feel that this represents any acut) Prior EKG tracings: available for review Discharge Plan Discharge Patient Disposition: Placed in Observation Clinical Impression: Acute pyelonephritis Coding Level of Care Code ED [employer] for [employer] Fwd Exam Comprehensive
--- NOTE | 2021-04-19 19:27 | ECG_ITS ---
[facility] Test Date: 2021-04-19 Pat Name: Mely Barros Department: Room: Gender: Female Child Guidance Counselor: : 1935 Requested By: Gerry Burciaga Order Number: [id number] Ender MD: Gretel Hall M.D. Measurements Intervals [place] Rate: 116 P: GA: QRS: -38 QRSD: 120 T: 79 QT: 312 QTc: 434 Interpretive Statements Possible sinus tachycardia with a frequent PVCs First-degree AV block LEFT AXIS DEVIATION [QRS AXIS < -30] LEFT VENTRICULAR HYPERTROPHY AND ST-T CHANGE [VOLTAGE CRITERIA PLUS ST/T ABNORMALITY] POSSIBLE SEPTAL MYOCARDIAL INFARCTION , OF INDETERMINATE AGE [30 ms Q WAVE IN V1/V2] Compared to ECG 12/26/2020 00:36:17 Left ventricular hypertrophy now present Myocardial infarct finding now present Sinus rhythm no longer present ST (T wave) deviation still present Electronically Signed On 04-21-2021 21:48:53 STUNT PERFORMER by Gretel Hall M.D. [email or web address]
[2021-04-19 19:42] LABS: Glucose Point of Care 276 mg/dL (70-110)
[2021-04-19 19:50] VITALS: BP 124/58; PULSE 115; RESP 20; O2SAT 94
[2021-04-19] MEDS: sodium chloride 0.9% 1,000 ML 999 ML IV (19:51)
[2021-04-19 21:15] LABS: Basophils # 0.2 10^3/uL (0.0-0.1); Basophils % 0.4 %; Hemoglobin 10.2 g/dL (11.5-15.3); Lymphocytes # 0.9 10^3/uL (0.8-4.8); Lymphocytes % 2.1 %; Mean Corpuscular HGB Conc 30.9 g/dL (30.0-36.0); Mean Corpuscular Hemoglobin 30.8 pg (28.0-34.0); Mean Corpuscular Volume 99.7 fl (81-99); Mean Platelet Volume 10.7 fL (7.4-10.4); Monocytes # 1.2 10^3/uL (0.2-0.9); Monocytes % 2.9 %; Neutrophils # 37.94 10^3/uL (1.8-7.7); Nucleated Red Blood Cells % 0 %; Platelet Count 197 10^3/cmm (130-400); Red Blood Count 3.31 10^6/uL (4.1-5.3); Red Cell Distribution Width 14.4 % (12.1-15.1)
[2021-04-19 21:27] VITALS: BP 131/57; PULSE 110; RESP 20; O2SAT 94
[2021-04-19 21:45] LABS: Ketone (Acetest) Serum Negative (Negative)
[2021-04-19 21:46] LABS: White Blood Count 41.7 10^3/uL (4.0-10.0)
[2021-04-19 21:56] LABS: Alanine Aminotransferase 8 U/L (0-33); Albumin Level 3.2 g/dL (3.5-5.2); Alkaline Phosphatase 86 IU/L (35-105); Anion Gap 19.8 (5-19); Aspartate Amino Transferase 14 U/L (0-32); Blood Urea Nitrogen 22 mg/dL (8-23); Calcium 8.8 mg/dL (8.5-10.5); Carbon Dioxide 13 mmol/L (22-29); Chloride 104 mmol/L (98-107); Globulin 3.1 g/dL (1.3-4.6); Glucose 278 mg/dL (65-115); Magnesium 1.1 mg/dL (1.7-2.3); Osmolality Calculated 289 mOsm/kg (285-295); Potassium 3.8 mmol/L (3.5-5.1); Sodium 133 mmol/L (136-145); Total Bilirubin 0.4 mg/dL (0.15-1.2); Total Protein 6.3 g/dL (6.6-8.7)
[2021-04-19 22:03] LABS: Creatinine Clr Calc Pharmacy 19.6967
[2021-04-19] MEDS: cefTRIAXone 2,000 MG in sodium chloride 0.9% (plus) 50 ML 100 MG IV (22:20)
[2021-04-19 22:39] LABS: Add Urine Microscopic? YES; Bilirubin Urine Neg (Negative); Blood Urine 2+ (Negative); Glucose Urine UA 2+ (Normal); Ketones Urine Negative (Negative); Leukocyte Esterase Urine 2+ (Negative); Nitrate Urine Negative (Negative); Protein Urine 2+ (Negative); Specific Gravity, Urine 1.015 (1.005-1.030); Urine Appearance Cloudy (CLEAR); Urine Color Yellow (Yellow); Urobilinogen Urine Norm (Negative); pH Urine 5 (5-7)
[2021-04-19 22:42] LABS: Bacteria Urine 4+ /hpf; RBC Urine >100 /hpf (0-2); Squamous Epithelial Cell Urine 0-4 /hpf (0-5); WBC Urine TOO NUMEROUS TO CNT /hpf (0-5)
[2021-04-19 22:43] LABS: Add Urine Culture? Yes
[2021-04-19] MEDS: sodium chloride 0.9% 1,000 ML 150 ML IV (23:04)
--- NOTE | 2021-04-19 23:28 | PM.HP ---
Providers/Chief Complaint Primary Care Provider: Joaquin Paulino MD Chief Complaint: Elevated Blood Sugar\ Altered Mental State History of Present Illness Mely Barros is a 85 year old female with past medical history of hypertension, COPD, chronic pain syndrome, GERD who was brought by family to emergency room due to confusion which started yesterday and got worse today. Patient denies any complaints. She is a little confused why she is in the hospital. She denies any fevers or chills, nausea or vomiting, back pain, diarrhea, dysuria. Family reports dark cloudy urine. She denies similar episodes in the past. In the emergency room the patient is found to have UTI, pyelonephritis with associated dehydration, acute metabolic acidosis and acute kidney failure. Review of Systems General: Reports: 10 or more systems reviewed and unremarkable except in HPI and below Medications/Allergies Home Medications Medication Instructions Recorded Confirmed Last Taken Type cetirizine 10 mg PO DAILY 12/26/20 12/26/20 Unknown History citalopram 20 mg PO DAILY 12/26/20 12/26/20 Unknown History donepezil 5 mg PO DAILY 12/26/20 12/26/20 Unknown History gabapentin 200 mg PO BEDTIME 12/26/20 12/26/20 Unknown History mirtazapine 15 mg PO BEDTIME 12/26/20 12/26/20 Unknown History montelukast 10 mg PO DAILY 12/26/20 12/26/20 Unknown History oxybutynin chloride 10 mg PO BEDTIME 12/26/20 12/26/20 Unknown History pantoprazole 40 mg PO BID 12/26/20 12/26/20 Unknown History tramadol 50 - 100 mg PO QID PRN 12/26/20 12/26/20 Unknown History triamcinolone acetonide 1 applic TOPICAL BID PRN 12/26/20 12/26/20 Unknown History Allergies Allergy/AdvReac Type Severity Reaction Status Date / Time Latex, Natural Rubber Allergy Unknown Verified 12/26/20 01:26 PFSH Acute PFSH: Medical History Acute metabolic encephalopathy due to hypoglycemia Chronic back pain Chronic kidney disease, stage 3 Chronic renal failure Chronic renal insufficiency COPD (chronic obstructive pulmonary disease) Diabetes mellitus with hypoglycemia DVT prophylaxis Gastroesophageal reflux disease Hyperkalemia Hypertension Vitals/I&O/Wt Last Vital Signs Temp 97.9 F 04/19/21 19:17 Pulse 110 H 04/19/21 21:27 Resp 20 H 04/19/21 21:27 BP 131/57 04/19/21 21:27 Pulse Ox 94 04/19/21 21:27 04/19/21 04/19/21 04/20/21 14:59 22:59 06:59 Intake Total 1000 / 1000 50 / 1050 Balance 1000 / 1000 50 / 1050 Weight last 48 hrs Weight 96.162 kg Physical Exam Narrative: EXAM NARRATIVE: The patient is confused and disoriented. No acute distress. Mood and affect are appropriate. Responses are slow but adequate. Skin is warm and dry. Dry mucous membranes Eyes PERRL, extraocular muscles are intact. No icterus. Neck supple. No JVD Lungs are clear to auscultation bilaterally. No wheezes or crackles. No respiratory distress Heart S1, S2, regular Abdomen soft, nontender, bowel sounds are present Extremities bilateral 1+ edema. No cyanosis no calf tenderness bilaterally Neuro examination is nonfocal. Data : 04/19/21 21:10 04/19/21 21:10 Other Labs: Laboratory Results WBC 41.7 10^3/uL (4.0-10.0) H* 04/19/21 21:10 RBC 3.31 10^6/uL (4.1-5.3) L 04/19/21 21:10 Hgb 10.2 g/dL (11.5-15.3) L 04/19/21 21:10 Hct 33.0 % (37.0-47.0) L 04/19/21 21:10 MCV 99.7 fl (81-99) H 04/19/21 21:10 MCH 30.8 pg (28.0-34.0) 04/19/21 21:10 MCHC 30.9 g/dL (30.0-36.0) 04/19/21 21:10 RDW 14.4 % (12.1-15.1) 04/19/21 21:10 Plt Count 197 10^3/cmm (130-400) 04/19/21 21:10 MPV 10.7 fL (7.4-10.4) H 04/19/21 21:10 Neut % (Auto) 91.0 % 04/19/21 21:10 Lymph % (Auto) 2.1 % 04/19/21 21:10 [place] % (Auto) 2.9 % 04/19/21 21:10 Eos % (Auto) 0.0 % 04/19/21 21:10 Baso % (Auto) 0.4 % 04/19/21 21:10 Neut # (Auto) 37.94 10^3/uL (1.8-7.7) H 04/19/21 21:10 Lymph # (Auto) 0.9 10^3/uL (0.8-4.8) 04/19/21 21:10 [place] # (Auto) 1.2 10^3/uL (0.2-0.9) H 04/19/21 21:10 Eos # (Auto) 0.0 10^3/uL (0.0-0.8) 04/19/21 21:10 Baso # (Auto) 0.2 10^3/uL (0.0-0.1) H 04/19/21 21:10 Nucleated RBC % (auto) 0 % 04/19/21 21:10 Nucleated RBCs # 0.0 /100WBC 04/19/21 21:10 Sodium 133 mmol/L (136-145) L 04/19/21 21:10 Potassium 3.8 mmol/L (3.5-5.1) 04/19/21 21:10 Chloride 104 mmol/L (98-107) 04/19/21 21:10 Carbon Dioxide 13 mmol/L (22-29) L 04/19/21 21:10 Anion Gap 19.8 (5-19) H 04/19/21 21:10 BUN 22 mg/dL (8-23) 04/19/21 21:10 Creatinine 2.3 mg/dL (0.5-0.9) H 04/19/21 21:10 GFR Calculation Not Reportable 04/19/21 21:10 Glucose 278 mg/dL (65-115) H 04/19/21 21:10 POC Glucose 276 mg/dL (70-110) H 04/19/21 19:28 Calculated Osmolality 289 mOsm/kg (285-295) 04/19/21 21:10 Calcium 8.8 mg/dL (8.5-10.5) 04/19/21 21:10 Magnesium 1.1 mg/dL (1.7-2.3) L 04/19/21 21:10 Total Bilirubin 0.4 mg/dL (0.15-1.2) 04/19/21 21:10 AST 14 U/L (0-32) 04/19/21 21:10 ALT 8 U/L (0-33) 04/19/21 21:10 Alkaline Phosphatase 86 IU/L (35-105) 04/19/21 21:10 Total Protein 6.3 g/dL (6.6-8.7) L 04/19/21 21:10 Albumin 3.2 g/dL (3.5-5.2) L 04/19/21 21:10 Globulin 3.1 g/dL (1.3-4.6) 04/19/21 21:10 Urine Color Yellow (Yellow) 04/19/21 21:24 Urine Appearance Cloudy (CLEAR) 04/19/21 21:24 Urine pH 5 (5-7) 04/19/21 21:24 Ur Specific [place] 1.015 (1.005-1.030) 04/19/21 21:24 Urine Protein 2+ (Negative) H 04/19/21 21:24 Urine Glucose (UA) 2+ (Normal) H 04/19/21 21:24 Urine Ketones Negative (Negative) 04/19/21 21:24 Urine Blood 2+ (Negative) H 04/19/21 21:24 Urine Nitrate Negative (Negative) 04/19/21 21:24 Urine Bilirubin Neg (Negative) 04/19/21 21:24 Urine Urobilinogen Norm mg/dL (Negative) 04/19/21 21:24 Ur Leukocyte Esterase 2+ (Negative) H 04/19/21 21:24 Urine RBC >100 /hpf (0-2) H 04/19/21 21:24 Urine WBC Too numerous to cnt /hpf (0-5) H 04/19/21 21:24 Ur Squamous Epith Cells 0-4 /hpf (0-5) H 04/19/21 21:24 Amorphous Sediment Not Reportable 04/19/21 21:24 Urine Bacteria 4+ /hpf (NONE) H 04/19/21 21:24 Fine Granular Casts 5-10 /lpf H 04/19/21 21:24 Serum Ketones Negative (Negative) 04/19/21 21:10 A&P Assessment and plan (1) Acute pyelonephritis: Status: Acute (2) Acute metabolic encephalopathy: Status: Acute (3) Metabolic acidosis: Status: Acute (4) Acute kidney injury: Status: Acute (5) Hypomagnesemia: Status: Acute (6) Hyperglycemia: Status: Acute Additional A&P Information 85-year-old female with past medical history of hypertension, diabetes, COPD, chronic kidney disease who is brought to emergency room due to confusion. Acute metabolic encephalopathy secondary to acute pyelonephritis with associated metabolic acidosis, dehydration, acute kidney injury. Admitting to [facility]. We will continue IV fluids. We will recheck her labs in the morning. We will continue Rocephin. Will wait for the UCS. Blood cultures are obtained as well. Hypomagnesemia. Will replace and monitor. DVT prophylaxis. Heparin. CODE STATUS. The patient wants to be full code. The plan of care was discussed with the patient and her family. They verbalized understanding and agreement Attestations Medical Necessity Statement*: Based on my assessment of patient's current condition, diagnosis and plan of care I expect that the patient will spend more than 2 midnights in the hospital. Coding Level of Care Code Acute Mail Forwarding System Markup Clerk for Blossom Wilson Diagnoses Acute pyelonephritis N10 Acute metabolic encephalopathy G93.41 Metabolic acidosis E87.2 Acute kidney injury N17.9 Hypomagnesemia E83.42 Hyperglycemia R73.9
[2021-04-19 23:41] LABS: SARS Covid-2 Antigen Negative (Negative)
[2021-04-20] VITALS (7 sets, daily range): BP systolic 115–146; BP diastolic 62–87; PULSE 79–102; RESP 16–18; TEMP 36.4–38.1; O2SAT 90–100
[2021-04-20 00:59] LABS: Lactate (Lactic Acid level) 3.4 mmol/L (0.5-2.2)
[2021-04-20 02:11] LABS: Glucose Point of Care 246 mg/dL (70-110)
[2021-04-20] MEDS: magnesium sulfate premix 2 GM/50 ML PIGGYBACK IV (03:47)
[2021-04-20] MEDS: heparin 5,000 unit/mL INJ 1 mL 5000 UNIT SUBCUT ×3 (03:48→17:52)
[2021-04-20] MEDS: ondansetron 2 mg/ML SDV 2 mL 4 MG IVP (03:54)
[2021-04-20] MEDS: sodium chloride 0.9% 1,000 ML 150 ML IV (05:07)
[2021-04-20 06:28] LABS: Glucose Point of Care 223 mg/dL (70-110)
--- NOTE | 2021-04-20 08:00 | PC.PHAR ---
pts daughter eden verified pts medications-notes are made in the comments-pts daughter states dced the pts humulin 70/30 last filled on 12/01/20 25d/s
[2021-04-20] MEDS: insulin lispro 100 unit/1 mL SUBCUT ×3 (08:09→21:57)
[2021-04-20] MEDS: cefTRIAXone 1,000 MG in sodium chloride 0.9% (plus) 50 ML 100 MG IV (08:09)
--- NOTE | 2021-04-20 08:31 | CT_ITS ---
WS: [id number] CT ABDOMEN PELVIS TECHNIQUE: Noncontrast CT of the abdomen and pelvis with coronal and sagittal reformatted images. CLINICAL INFORMATION: pyelonephritis COMPARISON: CT January 29, 2016 DLP: 1763.[address] scans at [facility] use at least one of these dose optimization techniques: automated e xposure control; mA and/or kV adjustment per patient size (includes targeted exams where dose is matc hed to clinical indication); or iterative reconstruction. FINDINGS: Noncontrast liver is normal. Postoperative changes GE junction. Cholecystectomy clips. Emphysematous changes at the lung bases. Slight bibasilar atelectasis. A few tiny noncalcified nodules in the lower lobes. Noncontrast spleen is normal. Fatty atrophy of the pancreas. Adrenal glands are normal. Bilat eral renal atrophy. Prominent right extrarenal pelvis. No hydronephrosis in the left kidney. Pelvic p hleboliths. No obstructing renal or ureteral calculi. Prominent perinephric edema about the right kidney can be seen with pyelonephritis. Enhancement canno t be evaluated without contrast. Normal sigmoid colon. A few sigmoid diverticuli. No evidence of high-grade small or large bowel obstr uction. Prior ventral abdominal wall postoperative changes along the anterior abdominal wall. Normal caliber abdominal aorta. Aortic calcification. Tiny fat-containing umbilical hernia. No abdomi nal or pelvic lymphadenopathy. No inguinal lymphadenopathy. CT/CT abdomen pelvis wo con [id number] IMPRESSION: 1. Advanced bilateral renal cortical atrophy. 2. Prominent right extrarenal pelvis. Prominent perinephric edema about the ri ght kidney can be seen with pyelonephritis. Correlation for UTI. 3. No obstructing renal or ureteral calculi. 4. Prior postoperative changes GE junction. 5. Prior cholecystectomy. 6. No other significant findings.
[2021-04-20] MEDS: piperacillin-tazobactam 3.375 GM in sodium chloride 0.9% (plus) 50 ML IV ×2 (09:09→21:56)
[2021-04-20 09:15] LABS: Basophils # 0.1 10^3/uL (0.0-0.1); Basophils % 0.3 %; Eosinophils # 0.1 10^3/uL (0.0-0.8); Eosinophils % 0.2 %; Hematocrit 32.6 % (37.0-47.0); Hemoglobin 10.5 g/dL (11.5-15.3); Lymphocytes # 1.3 10^3/uL (0.8-4.8); Lymphocytes % 4.5 %; Mean Corpuscular HGB Conc 32.2 g/dL (30.0-36.0); Mean Corpuscular Hemoglobin 30.5 pg (28.0-34.0); Mean Corpuscular Volume 94.8 fl (81-99); Monocytes # 1.2 10^3/uL (0.2-0.9); Neutrophils # 25.54 10^3/uL (1.8-7.7); Neutrophils % 87.7 %; Nucleated Red Blood Cells % 0 %; Platelet Count 150 10^3/cmm (130-400); Red Blood Count 3.44 10^6/uL (4.1-5.3); Red Cell Distribution Width 14.3 % (12.1-15.1); White Blood Count 29.1 10^3/uL (4.0-10.0)
--- NOTE | 2021-04-20 09:41 | PC.CHAP ---
Pastoral Care Encounter/Spiritual Assessment Type of Contact [] Declined clipping marker visit [] Patient/Family/Request visit [] Outpatient visit [] Follow-up visit [] Physician referral [] Code/Alert [x] Routine visit [] Staff referral [] Actively dying [] Patient sleeping [] Family support [] [] Out of room [] Palliative care [] [] Receiving care in room [] Pre-surgical visit [] Trauma [] Long length of stay [] ICU visit [] Other: Relational/Emotional Strength [x] Patient feels connected with others/family/visitors/staff [x] Distress [] Loneliness/isolation [] Abandonment Spirituality of Patient [x] Person of Teresa [x] Attends Anabaptist of their Teresa [x] Believes in Prayer [] Reads Bible or Anabaptist materials [] There are Spiritual issues to be addressed Gate Watchman Interventions [x] Prayer [x] Active listening [x] Non-anxious presence [x]x Spiritual/emotional support [] Crisis/trauma care [] Spiritual counseling [] Bereavement support [] Provided bereavement packet [] Provided Bible/devotional materials [] Provided toy/stuffed animal, coloring book to patient or family member [] Provided Communion [] Anointing/Severn [] Salvation [x] Completed spiritual assessment [] Other: Impact on Illness or Injury [] Angry [] Fearful [] Anxious [] Often cries [] Exhaustion [] Unable to work [] Unable to attend adventist [] Unable to walk/stand [] Unable to read [] Unable to drive [] Unable to eat/drink [] Unable to sleep [] Unable to be with family [] Patient intubated [] Other: Summary Time spent with patient 15 min
[2021-04-20 11:01] LABS: Blood Urea Nitrogen 26 mg/dL (8-23); Carbon Dioxide 14 mmol/L (22-29); Chloride 106 mmol/L (98-107); Glucose 199 mg/dL (65-115); Magnesium 1.6 mg/dL (1.7-2.3); Osmolality Calculated 288 mOsm/kg (285-295); Phosphorus 1.6 mg/dL (2.5-4.5); Sodium 134 mmol/L (136-145)
[2021-04-20 11:03] LABS: Estmated Average Glucose 169; Hemoglobin A1C 7.5 % (4.0-6.0)
[2021-04-20 11:08] LABS: Anion Gap 18.5 (5-19); Potassium 4.5 mmol/L (3.5-5.1)
[2021-04-20 12:13] LABS: Glucose Point of Care 212 mg/dL (70-110)
--- NOTE | 2021-04-20 14:25 | PM.PN ---
Subjective Subjective: Interval history: Right-sided pyelonephritis Severe sepsis Escalate antibiotics to Zosyn Leukocytosis trending down, low-grade fever Daughter at the bedside H&P reviewed Vitals/I&O/Wt Last Vital Signs Temp 97.7 F 04/20/21 11:35 Pulse 79 04/20/21 11:35 Resp 16 04/20/21 11:35 BP 119/62 04/20/21 11:35 Pulse Ox 100 04/20/21 11:35 04/19/21 04/20/21 04/20/21 22:59 06:59 14:59 Intake Total 1000 / 1000 997.5 / 1996.5 1115 / 1115 Output Total Balance 1000 / 1000 977.5 / 1976.5 1115 / 1115 Weight last 48 hrs Weight 81.647 kg Weight 96.162 kg Physical Exam Narrative: EXAM NARRATIVE: Patient was laying comfortably in her bed Nonfocal neuro exam S1, S2 Obese elderly female Very pleasant to communicate Abdomen soft nontender no signs of peritonitis Lower extremity no edema EOMI, PERRLA awake alert oriented x3 GCS 15 Data : 04/20/21 08:49 04/20/21 10:20 Micro: Microbiology 04/20/21 10:16 Blood Culture - Preliminary Blood SPECIMEN COLLECTED 04/20/21 10:16 Blood Culture - Preliminary Blood SPECIMEN COLLECTED A&P Assessment and plan (1) Hyperglycemia: Status: Acute (2) Hypomagnesemia: Status: Acute (3) Acute kidney injury: Status: Acute (4) Metabolic acidosis: Status: Acute (5) Acute metabolic encephalopathy: Status: Acute (6) Acute pyelonephritis: Status: Acute Additional A&P Information Plan for today Severe sepsis No signs of shock Escalated antibiotics to Zosyn Renally dose antibiotics Follow-up with blood cultures and urine culture Hypophosphatemia: Repleted Hypomagnesemia: Repleted Metabolic acidosis related to uremia and lactic acidemia follow-up with lactic acid, continue IV fluids Encephalopathy which is related to metabolic derangement: Improved Pleasant oriented to time place and person, NIH 0 YAS related to severe sepsis seems to be between 1.7-2 -Diabetes with hyperglycemia, Lantus and sliding scale Full code Consistent carb diet DVT prophylaxis Heparin Attestations Medical Necessity Statement*: Continue medical management Time Spent in Patient Care: 16 - 35 minutes Coding Level of Care Code Acute Podiatry Doctor for Chg Fwd Diagnoses Hyperglycemia R73.9 Hypomagnesemia E83.42 Acute kidney injury N17.9 Metabolic acidosis E87.2 Acute metabolic encephalopathy G93.41 Acute pyelonephritis N10
[2021-04-20] MEDS: phosphorus 250 mg Tablet PO ×2 (15:20→21:55)
[2021-04-20] MEDS: magnesium oxide 400 mg tablet PO ×2 (15:20→21:55)
[2021-04-20 17:47] LABS: Glucose Point of Care 117 mg/dL (70-110)
[2021-04-20] MEDS: sodium chloride 0.9% 1,000 ML 75 ML IV (17:52)
[2021-04-20 21:09] LABS: Glucose Point of Care 151 mg/dL (70-110)
--- NOTE | 2021-04-20 21:54 | PC.NURSE ---
Pt moved to room 259-1 to accommodate new admissions. Pt tolerated well.
[2021-04-20] MEDS: mirtazapine 15 mg Tablet PO (21:55)
[2021-04-21] VITALS: BP 105/69; PULSE 96; RESP 20; TEMP 37.3; O2SAT 95
[2021-04-21 04:00] VITALS: BP 106/64; PULSE 74; RESP 20; TEMP 37.6; O2SAT 95
[2021-04-21] MEDS: heparin 5,000 unit/mL INJ 1 mL 5000 UNIT SUBCUT ×3 (05:08→17:52)
[2021-04-21] MEDS: sodium chloride 0.9% 1,000 ML 75 ML IV (05:08)
[2021-04-21 06:49] LABS: Glucose Point of Care 118 mg/dL (70-110)
[2021-04-21 07:34] VITALS: BP 138/82; PULSE 92; RESP 16; TEMP 37; O2SAT 99
[2021-04-21] MEDS: piperacillin-tazobactam 3.375 GM in sodium chloride 0.9% (plus) 50 ML IV ×2 (08:19→20:50)
[2021-04-21] MEDS: magnesium oxide 400 mg tablet PO ×2 (08:19→17:52)
[2021-04-21] MEDS: phosphorus 250 mg Tablet PO ×2 (08:19→17:52)
[2021-04-21 11:28] VITALS: BP 135/51; PULSE 104; RESP 16; TEMP 37.4; O2SAT 97
--- NOTE | 2021-04-21 11:49 | PM.PN ---
Subjective Subjective: Interval history: Preliminary blood culture report gram-negative santo, urine culture gram-negative santo Patient is afebrile since last 24 hours, patient is stating that she is feeling fine Creatinine has not significantly improved Continue IV fluids and antibiotics Vitals/I&O/Wt Last Vital Signs Temp 99.3 F 04/21/21 11:28 Pulse 104 H 04/21/21 11:28 Resp 16 04/21/21 11:28 BP 135/51 04/21/21 11:28 Pulse Ox 97 04/21/21 11:28 04/20/21 04/21/21 04/21/21 22:59 06:59 14:59 Intake Total 335 / 1450 865 / 2315 238.75 / 238.75 Balance 335 / 1450 865 / 2315 238.75 / 238.75 Weight last 48 hrs Weight 81.647 kg Weight 96.162 kg Physical Exam Narrative: EXAM NARRATIVE: Patient was laying supine Lethargic and fatigued S1, S2 variable Abdomen soft No extremity no edema Patient was eating breakfast EOMI, PERRLA Nonfocal neuro exam Saturating well on 2 L nasal cannula, she does use 3 L at home Data : 04/20/21 08:49 04/20/21 10:20 Micro: Microbiology 04/19/21 21:24 Urine Culture - Preliminary Urine Catheterized Gram Negative Rods 04/20/21 10:16 Blood Culture - Preliminary Blood 04/20/21 10:16 Blood Culture - Preliminary Blood A&P Assessment and plan (1) Hyperglycemia: Status: Acute (2) Hypomagnesemia: Status: Acute (3) Acute kidney injury: Status: Acute (4) Metabolic acidosis: Status: Acute (5) Acute metabolic encephalopathy: Status: Acute (6) Acute pyelonephritis: Status: Acute (7) Acute kidney injury superimposed on chronic kidney disease: Status: Acute Additional A&P Information Severe sepsis related to pyelonephritis Continue Zosyn No hemodynamic instability Blood culture and urine culture positive for gram-negative rods Patient has been afebrile for last 24 hours, repeat blood cultures tomorrow morning Patient is denying dysuria Hypophosphatemia and hypomagnesemia has been repleted Metabolic acidosis improved Hyperglycemia related to type 2 diabetes euglycemic, hemoglobin A1c 7.5 Acute on chronic kidney disease Baseline creatinine 2-2.1 Anticipating improvement with fluid resuscitation We will give her 1 amp of bicarb if there is no improvement in acidosis however I do not have BMP from today Full dose Lovenox consistent carb diet Heparin DVT prophylaxis Full code Attestations Medical Necessity Statement*: Continue IV antibiotics, will stay in the hospital for next 2 days Time Spent in Patient Care: 16 - 35 minutes Coding Level of Care Code Acute Public Health Service Officer for Chg Fwd Diagnoses Hyperglycemia R73.9 Hypomagnesemia E83.42 Acute kidney injury N17.9 Metabolic acidosis E87.2 Acute metabolic encephalopathy G93.41 Acute pyelonephritis N10 Acute kidney injury superimposed on chronic kidney disease N17.9; N18.9
[2021-04-21 11:53] LABS: Basophils # 0.1 10^3/uL (0.0-0.1); Basophils % 0.4 %; Eosinophils # 0.1 10^3/uL (0.0-0.8); Eosinophils % 0.7 %; Hematocrit 28.8 % (37.0-47.0); Lymphocytes # 0.7 10^3/uL (0.8-4.8); Lymphocytes % 4.8 %; Mean Corpuscular HGB Conc 31.3 g/dL (30.0-36.0); Mean Corpuscular Hemoglobin 30.5 pg (28.0-34.0); Mean Corpuscular Volume 97.6 fl (81-99); Monocytes # 0.8 10^3/uL (0.2-0.9); Monocytes % 5.5 %; Neutrophils # 11.94 10^3/uL (1.8-7.7); Neutrophils % 87.5 %; Nucleated Red Blood Cells % 0 %; Platelet Count 167 10^3/cmm (130-400); Red Blood Count 2.95 10^6/uL (4.1-5.3); Red Cell Distribution Width 14.6 % (12.1-15.1); White Blood Count 13.7 10^3/uL (4.0-10.0)
[2021-04-21 12:17] LABS: Glucose Point of Care 195 mg/dL (70-110)
[2021-04-21 12:20] LABS: Anion Gap 19.1 (5-19); Blood Urea Nitrogen 29 mg/dL (8-23); Calcium 7.6 mg/dL (8.5-10.5); Carbon Dioxide 13 mmol/L (22-29); Chloride 102 mmol/L (98-107); Glucose 200 mg/dL (65-115); Magnesium 1.5 mg/dL (1.7-2.3); Osmolality Calculated 281 mOsm/kg (285-295); Phosphorus 2.9 mg/dL (2.5-4.5); Potassium 4.1 mmol/L (3.5-5.1); Sodium 130 mmol/L (136-145)
[2021-04-21] MEDS: sodium chloride 0.9% 1,000 ML 30 ML IV (12:33)
[2021-04-21 15:14] VITALS: BP 125/83; PULSE 84; RESP 18; TEMP 37.2; O2SAT 97
[2021-04-21 17:07] LABS: Glucose Point of Care 162 mg/dL (70-110)
[2021-04-21] MEDS: insulin lispro 100 unit/1 mL SUBCUT ×2 (17:51→20:50)
[2021-04-21] MEDS: sodium chloride 0.9% 1,000 ML 100 ML IV (18:16)
[2021-04-21 18:21] LABS: NT Pro B Type Natriuretic Pept 5548 pg/mL (0-450)
[2021-04-21] MEDS: sodium bicarbonate 8.4% 1 mEq/mL 50mL Syr 50 MEQ IVP (18:22)
[2021-04-21 20:00] VITALS: BP 137/81; PULSE 89; RESP 19; TEMP 37.1; O2SAT 97
[2021-04-21] MEDS: mirtazapine 15 mg Tablet PO (20:50)
[2021-04-21 20:52] LABS: Glucose Point of Care 144 mg/dL (70-110)
[2021-04-22] VITALS: BP 159/84; PULSE 99; RESP 18; TEMP 36.3; O2SAT 98
[2021-04-22] MEDS: heparin 5,000 unit/mL INJ 1 mL 5000 UNIT SUBCUT ×3 (01:23→17:03)
[2021-04-22 04:00] VITALS: BP 143/74; PULSE 63; RESP 16; TEMP 37.2; O2SAT 96
[2021-04-22] MEDS: sodium chloride 0.9% 1,000 ML 100 ML IV ×2 (04:07→17:05)
[2021-04-22 06:16] LABS: Basophils % 0.5 %; Eosinophils # 0.2 10^3/uL (0.0-0.8); Eosinophils % 2.8 %; Hematocrit 27.7 % (37.0-47.0); Hemoglobin 8.9 g/dL (11.5-15.3); Lymphocytes # 0.8 10^3/uL (0.8-4.8); Lymphocytes % 10.5 %; Mean Corpuscular HGB Conc 32.1 g/dL (30.0-36.0); Mean Corpuscular Hemoglobin 30.2 pg (28.0-34.0); Mean Corpuscular Volume 93.9 fl (81-99); Mean Platelet Volume 10.3 fL (7.4-10.4); Monocytes # 0.6 10^3/uL (0.2-0.9); Monocytes % 7.5 %; Neutrophils # 6.07 10^3/uL (1.8-7.7); Neutrophils % 78.3 %; Nucleated Red Blood Cells % 0 %; Platelet Count 162 10^3/cmm (130-400); Red Blood Count 2.95 10^6/uL (4.1-5.3); Red Cell Distribution Width 14.3 % (12.1-15.1); White Blood Count 7.8 10^3/uL (4.0-10.0)
[2021-04-22 06:31] LABS: Glucose Point of Care 163 mg/dL (70-110)
[2021-04-22 06:39] LABS: Anion Gap 17.8 (5-19); Blood Urea Nitrogen 23 mg/dL (8-23); Calcium 7.7 mg/dL (8.5-10.5); Carbon Dioxide 17 mmol/L (22-29); Chloride 105 mmol/L (98-107); Glucose 98 mg/dL (65-115); Magnesium 1.5 mg/dL (1.7-2.3); Osmolality Calculated 286 mOsm/kg (285-295); Phosphorus 2.5 mg/dL (2.5-4.5); Potassium 3.8 mmol/L (3.5-5.1); Sodium 136 mmol/L (136-145)
[2021-04-22 07:21] VITALS: BP 146/74; PULSE 92; RESP 14; TEMP 36.9; O2SAT 90
[2021-04-22] MEDS: piperacillin-tazobactam 3.375 GM in sodium chloride 0.9% (plus) 50 ML IV ×3 (08:39→23:32)
[2021-04-22] MEDS: phosphorus 250 mg Tablet PO (08:39)
[2021-04-22] MEDS: magnesium oxide 400 mg tablet PO ×2 (08:39→17:04)
[2021-04-22] MEDS: insulin lispro 100 unit/1 mL SUBCUT ×2 (08:39→17:03)
[2021-04-22 10:59] VITALS: BP 134/80; PULSE 82; RESP 16; TEMP 36.8; O2SAT 93
[2021-04-22 11:28] LABS: Glucose Point of Care 140 mg/dL (70-110)
--- NOTE | 2021-04-22 12:29 | P.PN_ITS ---
Subjective Subjective: Interval history: Patient is endorsing feeling lethargic and fatigued YAS improved with normal saline 100 mL/h Leukocytosis improved she has been afebrile Bacteremia with gram-negative santo, urine culture with gram-negative rods Vitals/I&O/Wt Last Vital Signs Temp 98.2 F 04/22/21 10:59 Pulse 82 04/22/21 10:59 Resp 16 04/22/21 10:59 BP 134/80 04/22/21 10:59 Pulse Ox 93 04/22/21 10:59 04/21/21 04/22/21 04/22/21 22:59 06:59 14:59 Intake Total 416.5 / 705.25 1035 / 1740.25 240 / 240 Output Total 100 / 100 1300 / 1400 Balance 316.5 / 605.25 -265 / 340.25 240 / 240 Physical Exam Narrative: EXAM NARRATIVE: Patient was in her chair eating breakfast Saturating well on her at the bedside S1, S2 Clinically does look slightly dehydrated Abdomen distended with obesity EOMI, PERRLA nonfocal neuro exam No acute shortness of breath Nonfocal neuro exam Fatigued and lethargic Urinary Catheter Management^: Brantley: Cath Placed During This Visit: yes Reason for Continuing Indwelling Catheter: Other Urinary Catheter Date of Insertion: 04/21/21 Urinary Catheter Time of Insertion: 19:20 Data : 04/22/21 06:02 04/22/21 06:02 Micro: Microbiology 04/19/21 21:24 Urine Culture - Final Urine Catheterized Escherichia coli esbl 04/22/21 06:04 Blood Culture - Preliminary Blood SPECIMEN COLLECTED 04/22/21 06:02 Blood Culture - Preliminary Blood SPECIMEN COLLECTED 04/20/21 10:16 Blood Culture - Preliminary Blood 04/20/21 10:16 Blood Culture - Preliminary Blood A&P Assessment and plan (1) Acute kidney injury superimposed on chronic kidney disease: Status: Acute (2) Hyperglycemia: Status: Acute (3) Hypomagnesemia: Status: Acute (4) Acute kidney injury: Status: Acute (5) Metabolic acidosis: Status: Acute (6) Acute metabolic encephalopathy: Status: Acute (7) Acute pyelonephritis: Status: Acute Additional A&P Information Sepsis secondary pyelonephritis Sepsis resolved Leukocytosis improved, bacteremia with gram-negative rods, urine culture growing ESBL, sensitive to Augmentin We will follow up with culture and sensitivity Currently she is on Zosyn, at the time of admission she was put on ceftriaxone which was escalated Hyperglycemia well-controlled blood sugar with improvement in sliding scale yesterday Acute on chronic kidney disease: Creatinine improved with IV fluid hydration clinical signs of dehydration as well Hypophosphatemia: Resolved Hypomagnesemia: Continue replenishment Corrected calcium albumin is normal Fatigue and lethargic: Patient is refusing intermediate placement, will discharge her with p.o. antibiotics with home health services After culture sensitivity report Hyponatremia has improved as well with normal saline Full code Consistent carb diet DVT prophylaxis Heparin Attestations Medical Necessity Statement*: Plan to discharge her tomorrow Time Spent in Patient Care: 16 - 35 minutes Coding Level of Care Code Acute Splicer Machine Operator for Blossom Wilson Diagnoses Acute kidney injury superimposed on chronic kidney disease N17.9; N18.9 Hyperglycemia R73.9 Hypomagnesemia E83.42 Acute kidney injury N17.9 Metabolic acidosis E87.2 Acute metabolic encephalopathy G93.41 Acute pyelonephritis N10
--- NOTE | 2021-04-22 12:55 | PC.SOCIAL ---
IMM Update pg 2 of IMM updated and reviewed w/ patient. Copy provided.
[2021-04-22 15:29] VITALS: BP 132/85; PULSE 76; RESP 16; TEMP 36.7; O2SAT 95
[2021-04-22 17:02] LABS: Glucose Point of Care 181 mg/dL (70-110)
[2021-04-22 20:00] VITALS: BP 143/82; PULSE 82; RESP 16; TEMP 36.5; O2SAT 95
[2021-04-22] MEDS: mirtazapine 15 mg Tablet PO (20:20)
[2021-04-22 21:18] LABS: Glucose Point of Care 130 mg/dL (70-110)
[2021-04-23] VITALS: BP 157/73; PULSE 81; RESP 17; TEMP 36.6; O2SAT 94
[2021-04-23] MEDS: heparin 5,000 unit/mL INJ 1 mL 5000 UNIT SUBCUT ×2 (01:09→09:04)
[2021-04-23 02:47] LABS: Basophils # 0.1 10^3/uL (0.0-0.1); Basophils % 0.8 %; Eosinophils # 0.5 10^3/uL (0.0-0.8); Hematocrit 29.4 % (37.0-47.0); Hemoglobin 9.5 g/dL (11.5-15.3); Lymphocytes # 1.2 10^3/uL (0.8-4.8); Lymphocytes % 19.1 %; Mean Corpuscular HGB Conc 32.3 g/dL (30.0-36.0); Mean Corpuscular Hemoglobin 29.8 pg (28.0-34.0); Mean Corpuscular Volume 92.2 fl (81-99); Mean Platelet Volume 11.8 fL (7.4-10.4); Monocytes # 0.7 10^3/uL (0.2-0.9); Monocytes % 10.3 %; Neutrophils % 61.2 %; Nucleated Red Blood Cells % 0 %; Platelet Count 174 10^3/cmm (130-400); Red Blood Count 3.19 10^6/uL (4.1-5.3); Red Cell Distribution Width 14.4 % (12.1-15.1); White Blood Count 6.4 10^3/uL (4.0-10.0)
[2021-04-23 03:02] LABS: Blood Urea Nitrogen 20 mg/dL (8-23); C Reactive Protein 103.6 mg/L (0.0-4.9); Calcium 7.4 mg/dL (8.5-10.5); Carbon Dioxide 18 mmol/L (22-29); Chloride 105 mmol/L (98-107); Glucose 106 mg/dL (65-115); Osmolality Calculated 285 mOsm/kg (285-295); Sodium 136 mmol/L (136-145)
[2021-04-23 03:06] LABS: Creatinine Clr Calc Pharmacy 21.8232; Procalcitonin 15.69 ng/mL (0-0.5)
[2021-04-23 03:07] LABS: Anion Gap 16.4 (5-19); Potassium 3.4 mmol/L (3.5-5.1)
[2021-04-23 04:00] VITALS: BP 151/80; PULSE 89; RESP 16; TEMP 36.6; O2SAT 94
[2021-04-23 06:56] LABS: Glucose Point of Care 118 mg/dL (70-110)
[2021-04-23 08:00] VITALS: BP 166/89; PULSE 69; RESP 16; TEMP 36.5; O2SAT 97
[2021-04-23] MEDS: magnesium oxide 400 mg tablet PO (09:04)
[2021-04-23] MEDS: piperacillin-tazobactam 3.375 GM in sodium chloride 0.9% (plus) 50 ML IV (09:04)
--- NOTE | 2021-04-23 11:28 | PM.DCS ---
Discharge Providers Date of Admission: 04/19/21 22:57 Date of Discharge: April 23, 2021 Attending Provider at Admission: Fredy Franco Attending Provider at Discharge: Rainer Trinidad MD Primary Care Provider: Joaquin Paulino MD Diagnoses at Discharge Discharge Diagnosis (1) Acute kidney injury superimposed on chronic kidney disease: Status: Acute (2) Hyperglycemia: Status: Acute (3) Hypomagnesemia: Status: Acute (4) Acute kidney injury: Status: Acute (5) Metabolic acidosis: Status: Acute (6) Acute metabolic encephalopathy: Status: Acute (7) Acute pyelonephritis: Status: Acute Reason for Visit Reason for Visit: Elevated Blood Sugar\ Altered Mental State Hospital Course Hospital Course History of Present Illness by Dr. Jonathan Mcdonald Papo is a 85 year old female with past medical history of hypertension, COPD, chronic pain syndrome, GERD who was brought by family to emergency room due to confusion which started yesterday and got worse today. Patient denies any complaints. She is a little confused why she is in the hospital. She denies any fevers or chills, nausea or vomiting, back pain, diarrhea, dysuria. Family reports dark cloudy urine. She denies similar episodes in the past. In the emergency room the patient is found to have UTI, pyelonephritis with associated dehydration, acute metabolic acidosis and acute kidney failure. Hospital course Patient was admitted for management of sepsis related to acute pyelonephritis. She was diagnosed with metabolic encephalopathy. Her mentation improved with use of IV fluids and antibiotics. Secondary to severe leukocytosis I escalated her antibiotics to Zosyn, urine culture showed E. coli, ESBL, blood culture also showed gram-negative rods, repeat blood cultures were sterile, she remained afebrile and leukocytosis improved to normal. She was extremely lethargic and fatigued throughout her hospitalization and refused to go to halfway. Culture resistant report reviewed, she will be discharged on 2 weeks of p.o. antibiotic regimen (Augmentin). Her electrolytes were replenished which are contributing to her fatigue and lethargy, her phosphate and magnesium were repleted. She was diagnosed with acute on chronic kidney disease, her creatinine slowly trended down to baseline with IV fluid hydration. I did not give her any diuretics however BNP was high clinically she looks dry. Her baseline creatinine seems to be around 1.7-2.1. Daughters were kept updated. They agreed with the plan. To increase her appetite mirtazapine 7.5 mg was also added. Physical Exam Narrative: EXAM NARRATIVE: Patient was in her bed, supine, Saturating well on her at the bedside S1, S2 Hydration status has improved Abdomen distended with obesity EOMI, PERRLA nonfocal neuro exam No acute shortness of breath Nonfocal neuro exam Fatigued and lethargic Urinary Catheter Management^: Brantley: Cath Placed During This Visit: yes Reason for Continuing Indwelling Catheter: Other Urinary Catheter Date of Insertion: 04/21/21 Urinary Catheter Time of Insertion: 19:20 Discharge Data Data Completed and Pending: Completed Studies During Hospitalization Category Date Time Status CT abdomen pelvis wo con [id number] Rout ine Cat Scan 04/20/21 08:31 Completed Pending at discharge Category Date Time Status Blood Culture AM LABS Lab 04/22/21 06:04 Results Blood Culture Sta t Lab 04/19/21 22:19 Results Labs from last 24 hours 04/23/21 04/23/21 04/23/21 06:14 02:16 02:16 WBC 6.4 RBC 3.19 L Hgb 9.5 L Hct 29.4 L MCV 92.2 MCH 29.8 MCHC 32.3 RDW 14.4 Plt Count 174 MPV 11.8 H Neut % (Auto) 61.2 Lymph % (Auto) 19.1 [place] % (Auto) 10.3 Eos % (Auto) 8.0 Baso % (Auto) 0.8 Neut # (Auto) 3.90 Lymph # (Auto) 1.2 [place] # (Auto) 0.7 Eos # (Auto) 0.5 Baso # (Auto) 0.1 Nucleated RBC % (a uto) 0 Nucleated RBCs # 0.0 Sodium 136 Potassium 3.4 L Chloride 105 Carbon Dioxide 18 L Anion Gap 16.4 BUN 20 Creatinine 1.9 H GFR Calculation Not Reportable Glucose 106 POC Glucose 118 H Calculated Osmolal ity 285 Calcium 7.4 L C-Reactive Protein 103.6 H Procalcitonin 15.69 H 04/22/21 04/22/21 04/22/21 21:07 16:44 10:57 WBC RBC Hgb Hct MCV MCH MCHC RDW Plt Count MPV Neut % (Auto) Lymph % (Auto) [place] % (Auto) Eos % (Auto) Baso % (Auto) Neut # (Auto) Lymph # (Auto) [place] # (Auto) Eos # (Auto) Baso # (Auto) Nucleated RBC % (a uto) Nucleated RBCs # Sodium Potassium Chloride Carbon Dioxide Anion Gap BUN Creatinine GFR Calculation Glucose POC Glucose 130 H 181 H 140 H Calculated Osmolal ity Calcium C-Reactive Protein Procalcitonin Vitals: Last Vital Signs Temp 97.9 F 04/23/21 04:00 Pulse 89 04/23/21 04:00 Resp 16 04/23/21 04:00 BP 151/80 04/23/21 04:00 Pulse Ox 94 04/23/21 04:00 Discharge Plan Discharge Patient Disposition: Home Condition: Stable Prescriptions: New Augmentin 875-125 mg tablet 1 tab PO BID Qty: 28 RF: 0 magnesium oxide 400 mg magnesium capsule 400 mg PO BID Qty: 10 RF: 0 Continued donepezil 5 mg tablet 5 mg PO BEDTIME RF: 0 oxybutynin chloride 10 mg tablet extended release 24hr 10 mg PO BEDTIME RF: 0 triamcinolone acetonide 0.1 % cream 1 applic TOPICAL BID PRN (Reason: Itching) RF: 0 pantoprazole 40 mg tablet,delayed release (DR/EC) 40 mg PO BID PRN (Reason: see pharmacy comments) RF: 0 montelukast 10 mg tablet 10 mg PO DAILY RF: 0 gabapentin 100 mg capsule 200 mg PO BEDTIME RF: 0 tramadol 50 mg tablet 50 - 100 mg PO TID PRN (Reason: Pain) RF: 0 citalopram 20 mg tablet 20 mg PO DAILY RF: 0 metformin 500 mg tablet 500 mg PO BID RF: 0 glimepiride 2 mg tablet 2 mg PO DAILY RF: 0 mirtazapine 15 mg tablet 15 mg PO BEDTIME 30 Days Qty: 30 RF: 2 Discontinued cetirizine 10 mg tablet 10 mg PO QAM RF: 0 nitrofurantoin macrocrystal 100 mg capsule 100 mg PO DAILY RF: 0 Discharge Orders: Discharge Order (Routine); Ordered 04/23/21 Ordered By: Rainer Trinidad Referrals: [facility] [Outside] Joaquin Paulino MD [Primary Care Provider] - 04/28/21 10:45 am Discharge Diet: Diabetic Discharge Activity: Increase activity as tolerated Patient Instructions: Amoxicillin/Clavulanate Potassium (By mouth) (Augmentin, Augmentin..., Magnesium Oxide (By mouth) (Mag-Ox 400, [facility]..., Extended Spectrum Beta Lactamase (GEN), Urinary Tract Infection in Older Adults (DC), Opioid Safety Discharge Attestations Time Spent in Discharge Care*: less than 30 min Status at Discharge: Cognitive status at discharge: cognitively intact, Behavioral status at discharge: cooperative, Quality Metrics Clinical Quality Measures During this hospital stay, did patient experience: None Coding Level of Care Code Acute Chg FW DC note Diagnoses Acute kidney injury superimposed on chronic kidney disease N17.9; N18.9 Hyperglycemia R73.9 Hypomagnesemia E83.42 Acute kidney injury N17.9 Metabolic acidosis E87.2 Acute metabolic encephalopathy G93.41 Acute pyelonephritis N10
[2021-04-23 13:16] LABS: Glucose Point of Care 200 mg/dL (70-110)
== END 2021-04-23 13:30 | disposition home health service (06) | DRG 871 ==
LOC: ER 23:03 → MEDSURG 23:40
PROVIDERS: Admitting Provider Internal Medicine; Emergency Provider Emergency Medicine; PCP Family Medicine; Visit Provider Internal Medicine
DX: A41.9 Sepsis, unspecified organism (principal); G93.41 Metabolic encephalopathy; N10 Acute pyelonephritis; N17.9 Acute kidney failure, unspecified; N39.0 Urinary tract infection, site not specified; R65.20 Severe sepsis without septic shock; E86.0 Dehydration; E83.39 Other disorders of phosphorus metabolism; E83.42 Hypomagnesemia; I12.9 Hypertensive chronic kidney disease with stage 1 through stage 4 chronic kidney disease, or unspecified chronic kidney disease; E11.22 Type 2 diabetes mellitus with diabetic chronic kidney disease; N18.30 Chronic kidney disease, stage 3 unspecified; E11.65 Type 2 diabetes mellitus with hyperglycemia; B96.20 Unspecified Escherichia coli [E. coli] as the cause of diseases classified elsewhere; J44.9 Chronic obstructive pulmonary disease, unspecified; G89.4 Chronic pain syndrome; K21.9 Gastro-esophageal reflux disease without esophagitis; Z87.440 Personal history of urinary (tract) infections
CPT/HCPCS: 36415; 36416; 51701; 51702; 74176; 80048; 80053; 81001; 82009; 82962; 83036; 83605; 83735; 83880; 84100; 84145; 85025; 86140; 87040; 87077; 87086; 87186; 87205; 87426; 93005; 96361; 96365; 96372; 97110; 97161; 97530; 99285; J0696; J1644; J1815; J2405; J2543; J3475; J7030

== ENCOUNTER 2021-05-29 14:21 | Emergency (ER) | payer MEDICARE, SELFPAY ==
[2021-05-29 14:24] VITALS: BP 137/58; PULSE 70; TEMP 36.7; O2SAT 97; BMI 33.6
--- NOTE | 2021-05-29 14:39 | ED_ITS ---
HPI - General Adult General: Chief complaint: Shortness of Breath/Dyspnea Stated complaint: LEFT RIB PAIN Time Seen by Provider: 05/29/21 14:35 History of Present Illness: HPI narrative: Patient arrives via ambulance with rib pain. This rib pain started after she coughed last couple 3 days. She says it hurts to move her to be move. Hurts to push on that rib area. Patient is bedridden. Denies any fever or chills. Onset (ago): day(s) Location: chest Severity: moderate Quality: stabbing Pain Consistency: intermittent Relieving factors: immobilization Exacerbating factors: movement Associated symptoms: Reports cough; Deny dyspnea or rash Review of Systems Const: Denies: fever(s) or chills Resp: Reports: non-productive cough and other (Pain left rib area with cough); Denies: dyspnea Skin/Breast: Denies: rash Psych: Denies: mood swings [facility] ED PFSH: Medical History Acute metabolic encephalopathy due to hypoglycemia Chronic back pain Chronic kidney disease, stage 3 Chronic renal failure Chronic renal insufficiency COPD (chronic obstructive pulmonary disease) Diabetes mellitus with hypoglycemia DVT prophylaxis Gastroesophageal reflux disease Hyperkalemia Hypertension Physical Exam Const: COMMON NORMALS: no acute distress GENERAL APPEARANCE: cooperative Chest: CHEST: Yes localized rib tenderness with anteroposterior compression (Left side) Location: 7th rib, 8th rib and 9th rib Resp: AUSCULTATION: diminished lung sounds Skin: COMMON NORMALS: no rashes or lesions noted GENERAL SKIN EXAM: no rashes or lesions noted Course Vital Signs: Vital signs: Vital Signs Temperature 98.0 F 05/29/21 14:24 Pulse Rate 70 05/29/21 14:24 Blood Pressure 137/58 05/29/21 14:24 Pulse Oximetry 97 05/29/21 14:24 Discharge Plan Discharge Prescriptions: No Action donepezil 5 mg tablet 5 mg PO BEDTIME RF: 0 oxybutynin chloride 10 mg tablet extended release 24hr 10 mg PO BEDTIME RF: 0 triamcinolone acetonide 0.1 % cream 1 applic TOPICAL BID PRN (Reason: Itching) RF: 0 pantoprazole 40 mg tablet,delayed release (DR/EC) 40 mg PO BID PRN (Reason: see pharmacy comments) RF: 0 montelukast 10 mg tablet 10 mg PO DAILY RF: 0 gabapentin 100 mg capsule 200 mg PO BEDTIME RF: 0 tramadol 50 mg tablet 50 - 100 mg PO TID PRN (Reason: Pain) RF: 0 citalopram 20 mg tablet 20 mg PO DAILY RF: 0 metformin 500 mg tablet 500 mg PO BID RF: 0 glimepiride 2 mg tablet 2 mg PO DAILY RF: 0 Augmentin 875-125 mg tablet 1 tab PO BID Qty: 28 RF: 0 magnesium oxide 400 mg magnesium capsule 400 mg PO BID Qty: 10 RF: 0 mirtazapine 15 mg tablet 15 mg PO BEDTIME 30 Days Qty: 30 RF: 2 Coding Level of Care Code 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
--- NOTE | 2021-05-29 14:39 | XRR_ITS ---
PROCEDURE INFORMATION: Exam: XR Left Ribs with PA Chest Exam date and time: 05/29/2021 2:39 PM Age: 85 years old Clinical indication: Pain; Other: Lower ribs; Additional info: Pain in ribs after injury TECHNIQUE: Imaging protocol: XR Left ribs with PA chest. Views: 3 views COMPARISON: CR XR chest 1V portable [id number] 12/26/2020 12:38 AM FINDINGS: Lungs: Unremarkable. No consolidation. Pleural spaces: Unremarkable. No pleural effusion. No pneumothorax. Heart/Mediastinum: Unremarkable. No cardiomegaly. Bones/joints: No evidence of left rib fracture. ORIF hardware noted in the proximal right humerus. XR/XR ribs LT mn 3V w CXR1V [id number] IMPRESSION: No acute findings.
[2021-05-29] MEDS: HYDROcodone-acetaminophen 5-325 mg Tablet 1 TAB PO (15:28)
[2021-05-29 15:57] VITALS: BP 170/65; PULSE 77; RESP 20; O2SAT 94
== END 2021-05-29 15:59 | disposition home or self-care (01) ==
PROVIDERS: Emergency Provider Nurse Practitioner Family; PCP Family Medicine
DX: R07.81 Pleurodynia (principal); Z79.84 Long term (current) use of oral hypoglycemic drugs; I12.9 Hypertensive chronic kidney disease with stage 1 through stage 4 chronic kidney disease, or unspecified chronic kidney disease; E11.22 Type 2 diabetes mellitus with diabetic chronic kidney disease; N18.30 Chronic kidney disease, stage 3 unspecified; J44.9 Chronic obstructive pulmonary disease, unspecified
CPT/HCPCS: 71101; 99283

== ENCOUNTER 2021-10-07 09:15 | Emergency (ER) | payer MEDICARE, SELFPAY ==
[2021-10-07 09:23] VITALS: BP 156/46; PULSE 74; RESP 15; O2SAT 100; BMI 38.4
--- NOTE | 2021-10-07 09:24 | ECG_ITS ---
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 Measurements Intervals [place] Rate: 71 P: 13 AL: 205 QRS: -31 QRSD: 118 T: 59 QT: 374 QTc: 407 Interpretive Statements SINUS RHYTHM LEFT AXIS DEVIATION [QRS AXIS < -30] MODERATE INTRAVENTRICULAR CONDUCTION DELAY NONSPECIFIC ST & T-WAVE ABNORMALITY Compared to ECG 04/19/2021 19:47:33 Intraventricular conduction delay now present T-wave abnormality now present Left ventricular hypertrophy no longer present ST (T wave) deviation no longer present Myocardial infarct finding no longer present Electronically Signed On 10-07-2021 20:01:15 CDT by Cathleen Zimmerman M.D. [id number]
--- NOTE | 2021-10-07 09:24 | W.ED.WEAKNES ---
HPI - Weakness General: Chief complaint: Weakness Stated complaint: GENERALIZED WEAKNESS Time Seen by Provider: 10/07/21 09:17 Source: patient Mode of arrival: EMS Limitations: no limitations History of Present Illness: 85-year-old female presents emergency room with complaints of weakness for the last week. Grossly weaker. She went to use the restroom and missed the toilet and basically sat down on the floor. She is complaining little bit of discomfort in her right hip but can move the hip. She denies striking her head Zolyse loss of consciousness. She was recently taken off insulin for her type 2 diabetes she denies fever sweats or chills. According to the family patient's blood sugars been running in the 200s no cough no shortness of breath no chest pain no abdominal pain. MD Complaint: generalized weakness Onset (ago): hour(s) Duration: constant Location: generalized Severity: mild Relieving factors: none Exacerbating factors: none Associated symptoms: Denies chest pain, chills, confusion, melena, decreased appetite, diaphoresis, dysuria, easy bruising, fever(s), headache(s), myalgias, nausea, rash, short of breath, syncope or vomiting Review of Systems Const: Denies: fever(s), chills or diaphoresis ENMT: Denies: throat pain, ear or mastoid pain, nasal discharge or nasal congestion Card: Denies: chest pain, palpitations, irregular heart rhythm, edema, swelling of feet/ankles, lightheadedness or syncope Resp: Denies: dyspnea, productive cough or non-productive cough GI: Denies: abdominal pain, nausea, vomiting or melena : Denies: flank pain, difficulty voiding, dysuria, urinary frequency, urinary urgency or urinary hesitancy Musc: Reports: joint pain (Right hip); Denies: neck pain or back pain Skin/Breast: Denies: rash or pruritus Neuro: Denies: headache(s) or confusion Esvin/Lymph: Denies: easy bruising PFS ED PFSH: Medical History Acute metabolic encephalopathy due to hypoglycemia Chronic back pain Chronic kidney disease, stage 3 Chronic renal failure Chronic renal insufficiency COPD (chronic obstructive pulmonary disease) Diabetes mellitus with hypoglycemia DVT prophylaxis Gastroesophageal reflux disease Hyperkalemia Hypertension Physical Exam Const: COMMON NORMALS: no acute distress GENERAL APPEARANCE: cooperative and comfortable ORIENTATION/CONSCIOUSNESS: Yes awake, Yes oriented to person, Yes oriented to place and Yes oriented to time HENMT: COMMON NORMALS: normocephalic, atraumatic and hearing grossly normal bilaterally HEAD & SCALP: normocephalic and atraumatic Neck/C-Spine: COMMON NORMALS: no JVD Resp: COMMON NORMALS: normal respiratory effort, No retractions, No use of accessory muscles and clear to auscultation bilaterally AUSCULTATION: clear to auscultation bilaterally Cardio: COMMON NORMALS: no JVD, regular rate, regular rhythm and No murmurs present (Cardio) RATE: regular rate RHYTHM: regular rhythm GI: COMMON NORMALS: Soft to palpation and No hepatosplenomegaly present AUSCULTATION: Yes normoactive bowel sounds PALPATION: Yes Soft to palpation, No Tenderness to palpation present (GI), No Guarding due to palpation present (GI) and Yes No hepatosplenomegaly present Extremity: COMMON NORMALS: normal to inspection, capillary refill normal, no clubbing, cyanosis or edema, no calf tenderness and no pedal edema Neuro: SENSORIUM/ORIENTATION: Yes oriented to person, Yes oriented to place and Yes oriented to time Skin: COMMON NORMALS: no rashes or lesions noted GENERAL SKIN EXAM: no rashes or lesions noted Course Vital Signs: Vital signs: Vital Signs Pulse Rate 81 10/07/21 12:42 Respiratory Rate 15 10/07/21 09:23 Blood Pressure 165/75 10/07/21 12:42 Pulse Oximetry 100 10/07/21 12:42 MDM - Weakness Medical Decision Making Patient has a mild cystitis. We will start her on Macrobid twice daily for 7 days culture urine. She is anxious to go home x-ray is unremarkable I do think she would benefit from home health with PT at home family and patient are agreeable with home health ordered. Medical Records I reviewed the patient's medical records. Lab Data I reviewed the patient's lab results. : 10/07/21 12:36 10/07/21 12:36 Radiology Impressions Chest X-Ray 10/07/21 09:25 IMPRESSION: No significant cardiopulmonary abnormality. Hip/Pelvis X-Ray 10/07/21 09:36 IMPRESSION: No significant abnormality is seen in the left hip. Laboratory Results WBC 11.4 10^3/uL (4.0-10.0) H 10/07/21 12:36 RBC 3.10 10^6/uL (4.1-5.3) L 10/07/21 12:36 Hgb 9.4 g/dL (11.5-15.3) L 10/07/21 12:36 Hct 30.8 % (37.0-47.0) L 10/07/21 12:36 MCV 99.4 fl (81-99) H 10/07/21 12:36 MCH 30.3 pg (28.0-34.0) 10/07/21 12:36 MCHC 30.5 g/dL (30.0-36.0) 10/07/21 12:36 RDW 15.3 % (12.1-15.1) H 10/07/21 12:36 Plt Count 331 10^3/cmm (130-400) 10/07/21 12:36 MPV 10.1 fL (7.4-10.4) 10/07/21 12:36 Neut % (Auto) 67.8 % 10/07/21 12:36 Lymph % (Auto) 20.5 % 10/07/21 12:36 [place] % (Auto) 5.4 % 10/07/21 12:36 Eos % (Auto) 5.0 % 10/07/21 12:36 Baso % (Auto) 0.8 % 10/07/21 12:36 Neut # (Auto) 7.73 10^3/uL (1.8-7.7) H 10/07/21 12:36 Lymph # (Auto) 2.3 10^3/uL (0.8-4.8) 10/07/21 12:36 [place] # (Auto) 0.6 10^3/uL (0.2-0.9) 10/07/21 12:36 Eos # (Auto) 0.6 10^3/uL (0.0-0.8) 10/07/21 12:36 Baso # (Auto) 0.1 10^3/uL (0.0-0.1) 10/07/21 12:36 Nucleated RBC % (auto) 0 % 10/07/21 12:36 Nucleated RBCs # 0.0 /100WBC 10/07/21 12:36 Sodium 136 mmol/L (136-145) 10/07/21 12:36 Potassium 5.2 mmol/L (3.5-5.1) H 10/07/21 12:36 Chloride 104 mmol/L (98-107) 10/07/21 12:36 Carbon Dioxide 20 mmol/L (22-29) L 10/07/21 12:36 Anion Gap 17.2 (5-19) 10/07/21 12:36 BUN 26 mg/dL (8-23) H 10/07/21 12:36 Creatinine 2.2 mg/dL (0.5-0.9) H 10/07/21 12:36 GFR Calculation Not Reportable 10/07/21 12:36 Glucose 138 mg/dL (65-115) H 10/07/21 12:36 Calculated Osmolality 289 mOsm/kg (285-295) 10/07/21 12:36 Calcium 9.4 mg/dL (8.5-10.5) 10/07/21 12:36 Total Bilirubin 0.2 mg/dL (0.15-1.2) 10/07/21 12:36 AST 16 U/L (0-32) 10/07/21 12:36 ALT 11 U/L (0-33) 10/07/21 12:36 Alkaline Phosphatase 103 IU/L (35-105) 10/07/21 12:36 Total Protein 7.0 g/dL (6.6-8.7) 10/07/21 12:36 Albumin 3.6 g/dL (3.5-5.2) 10/07/21 12:36 Globulin 3.4 g/dL (1.3-4.6) 10/07/21 12:36 Urine Color Yellow (Yellow) 10/07/21 11:15 Urine Appearance Sl hazy (CLEAR) 10/07/21 11:15 Urine pH 5 (5-7) 10/07/21 11:15 Ur Specific [place] 1.010 (1.005-1.030) 10/07/21 11:15 Urine Protein Neg (Negative) 10/07/21 11:15 Urine Glucose (UA) Norm (Normal) 10/07/21 11:15 Urine Ketones Negative (Negative) 10/07/21 11:15 Urine Blood Neg (Negative) 10/07/21 11:15 Urine Nitrate Negative (Negative) 10/07/21 11:15 Urine Bilirubin Neg (Negative) 10/07/21 11:15 Urine Urobilinogen Neg mg/dL (Negative) 10/07/21 11:15 Ur Leukocyte Esterase 1+ (Negative) H 10/07/21 11:15 Urine RBC 0-4 /hpf (0-2) H 10/07/21 11:15 Urine WBC 5-10 /hpf (0-5) H 10/07/21 11:15 Ur Squamous Epith Cells 0-4 /hpf (0-5) H 10/07/21 11:15 Amorphous Sediment Not Reportable 10/07/21 11:15 Urine Bacteria 1+ /hpf (NONE) H 10/07/21 11:15 Urine Mucus None /hpf 10/07/21 11:15 Urine Yeast 1+ /hpf H 10/07/21 11:15 Discharge Plan Discharge Patient Disposition: Home Clinical Impression: Cystitis, Weakness Condition: Stable Prescriptions: New Macrobid 100 mg capsule 100 mg PO BID 7 Days Qty: 14 0RF Rx Instructions: must administer with a meal/food No Action donepezil 5 mg tablet 5 mg PO BEDTIME 0RF oxybutynin chloride 10 mg tablet extended release 24hr 10 mg PO BEDTIME 0RF triamcinolone acetonide 0.1 % cream 1 applic TOPICAL BID PRN (Reason: Itching) 0RF pantoprazole 40 mg tablet,delayed release (DR/EC) 40 mg PO BID PRN (Reason: see pharmacy comments) 0RF montelukast 10 mg tablet 10 mg PO DAILY 0RF gabapentin 100 mg capsule 200 mg PO BEDTIME 0RF tramadol 50 mg tablet 50 - 100 mg PO TID PRN (Reason: Pain) 0RF citalopram 20 mg tablet 20 mg PO DAILY 0RF metformin 500 mg tablet 500 mg PO BID 0RF glimepiride 2 mg tablet 2 mg PO DAILY 0RF Augmentin 875-125 mg tablet 1 tab PO BID Qty: 28 0RF magnesium oxide 400 mg magnesium capsule 400 mg PO BID Qty: 10 0RF mirtazapine 15 mg tablet 15 mg PO BEDTIME 30 Days Qty: 30 2RF hydrocodone-acetaminophen 5-325 mg tablet 1 tab PO TID PRN (Reason: pain) Qty: 14 0RF Voltaren Arthritis Pain 1 % gel 4 g topical QID Qty: 100 0RF Rx Instructions: apply to single knee, ankle, foot; for foot includes sole/toes/top of foot Discharge Orders: Discharge ED (Routine); Ordered 10/07/21 Ordered By: Jacky Graves Referrals: Joaquin Paulino MD [Primary Care Provider] - Discharge Diet: Usual diet Discharge Activity: Limit activity as instructed Patient Instructions: Opioid Safety Activity Restrictions/Additional Instructions: Recommend home health care with physical therapy. Start antibiotics twice daily for 10 days. 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
--- NOTE | 2021-10-07 09:25 | XRR_ITS ---
PROCEDURE INFORMATION: Exam: XR Chest Exam date and time: 10/07/2021 9:32 AM Age: 85 years old Clinical indication: Injury or trauma; Cough and dyspnea; Blunt trauma (contusions or hematomas); Patient HX: PT stated she fell, not really hard, and has been really weak for 1 week. PT stated she had pain around her lt breast and when the Dr. Moved her lt hip she grabbed it in pain but stated nothing was wrong with it that she didnt fall hard enough; Additional info: Dyspnea/cough TECHNIQUE: Imaging protocol: XR of the chest. Views: 1 view. COMPARISON: CR XR ribs LT mn 3V w CXR1V [id number] 05/29/2021 2:44 PM FINDINGS: Lungs: Unremarkable. No consolidation. Pleural spaces: Unremarkable. No pleural effusion. No pneumothorax. Heart/Mediastinum: Unremarkable. No cardiomegaly. Bones/joints: A metal plate and multiple screws transfixes an old right humerus fracture. XR/XR chest 1V portable [id number] IMPRESSION: No significant cardiopulmonary abnormality.
--- NOTE | 2021-10-07 09:36 | XRR_ITS ---
PROCEDURE INFORMATION: Exam: XR Left Hip Exam date and time: 10/07/2021 9:37 AM Age: 85 years old Clinical indication: Injury or trauma; Blunt trauma (contusions or hematomas); Left; Patient HX: PT stated she fell, not really hard, and has been really weak for 1 week. PT stated she had pain around her lt breast and when the Dr. Moved her lt hip she grabbed it in pain but stated nothing was wrong with it that she didnt fall hard enough TECHNIQUE: Imaging protocol: XR Left hip. Views: 2 or 3 views hip with pelvis when performed. COMPARISON: CT abdomen pelvis wo con [id number] 04/20/2021 8:57 AM FINDINGS: Bones/joints: Unremarkable. No acute fracture. Soft tissues: Unremarkable. XR/XR hip LT 2-3V wo/w pel* [id number] IMPRESSION: No significant abnormality is seen in the left hip.
[2021-10-07 12:41] LABS: Urine Appearance SL Hazy (CLEAR); Urine Color Yellow (Yellow)
[2021-10-07 12:42] VITALS: BP 165/75; PULSE 81; O2SAT 100
[2021-10-07 12:42] LABS: Add Urine Microscopic? YES; Bilirubin Urine Neg (Negative); Blood Urine Neg (Negative); Glucose Urine UA Norm (Normal); Ketones Urine Negative (Negative); Leukocyte Esterase Urine 1+ (Negative); Nitrate Urine Negative (Negative); Protein Urine Neg (Negative); RBC Urine 0-4 /hpf (0-2); Squamous Epithelial Cell Urine 0-4 /hpf (0-5); Urobilinogen Urine Neg (Negative); pH Urine 5 (5-7)
[2021-10-07 12:43] LABS: Add Urine Culture? Yes; Bacteria Urine 1+ /hpf
[2021-10-07 12:45] LABS: Basophils # 0.1 10^3/uL (0.0-0.1); Basophils % 0.8 %; Eosinophils # 0.6 10^3/uL (0.0-0.8); Hematocrit 30.8 % (37.0-47.0); Hemoglobin 9.4 g/dL (11.5-15.3); Lymphocytes # 2.3 10^3/uL (0.8-4.8); Lymphocytes % 20.5 %; Mean Corpuscular HGB Conc 30.5 g/dL (30.0-36.0); Mean Corpuscular Hemoglobin 30.3 pg (28.0-34.0); Mean Corpuscular Volume 99.4 fl (81-99); Mean Platelet Volume 10.1 fL (7.4-10.4); Monocytes # 0.6 10^3/uL (0.2-0.9); Monocytes % 5.4 %; Neutrophils # 7.73 10^3/uL (1.8-7.7); Neutrophils % 67.8 %; Nucleated Red Blood Cells % 0 %; Platelet Count 331 10^3/cmm (130-400); Red Cell Distribution Width 15.3 % (12.1-15.1); White Blood Count 11.4 10^3/uL (4.0-10.0)
[2021-10-07 13:05] LABS: Alanine Aminotransferase 11 U/L (0-33); Albumin Level 3.6 g/dL (3.5-5.2); Alkaline Phosphatase 103 IU/L (35-105); Anion Gap 17.2 (5-19); Aspartate Amino Transferase 16 U/L (0-32); Blood Urea Nitrogen 26 mg/dL (8-23); Calcium 9.4 mg/dL (8.5-10.5); Carbon Dioxide 20 mmol/L (22-29); Chloride 104 mmol/L (98-107); Globulin 3.4 g/dL (1.3-4.6); Glucose 138 mg/dL (65-115); Osmolality Calculated 289 mOsm/kg (285-295); Potassium 5.2 mmol/L (3.5-5.1); Sodium 136 mmol/L (136-145); Total Bilirubin 0.2 mg/dL (0.15-1.2)
[2021-10-07 14:52] VITALS: PULSE 69; RESP 16; O2SAT 100
== END 2021-10-07 14:53 | disposition home or self-care (01) ==
PROVIDERS: Emergency Provider Family Medicine; PCP Family Medicine
DX: N30.90 Cystitis, unspecified without hematuria (principal); R53.1 Weakness; J44.9 Chronic obstructive pulmonary disease, unspecified; I12.9 Hypertensive chronic kidney disease with stage 1 through stage 4 chronic kidney disease, or unspecified chronic kidney disease; E11.22 Type 2 diabetes mellitus with diabetic chronic kidney disease; N18.30 Chronic kidney disease, stage 3 unspecified; K21.9 Gastro-esophageal reflux disease without esophagitis
CPT/HCPCS: 51701; 71045; 73502; 80053; 81001; 85025; 87086; 93005; 99284

== ENCOUNTER 2021-11-23 23:03 | Emergency (ER) | payer MEDICARE, SELFPAY ==
[2021-11-23 23:08] VITALS: BMI 28.3
[2021-11-23 23:22] VITALS: BP 121/76; PULSE 74; RESP 16; TEMP 36.7; O2SAT 95
--- NOTE | 2021-11-23 23:40 | XRR_ITS ---
PROCEDURE INFORMATION: Exam: XR Chest Exam date and time: 11/24/2021 12:00 AM Age: 85 years old Clinical indication: Other: Weakness TECHNIQUE: Imaging protocol: Radiologic exam of the chest. Views: 1 view. COMPARISON: CR XR chest 1V portable [id number] 10/07/2021 9:32 AM FINDINGS: Lungs: Unremarkable. No consolidation. Pleural spaces: Unremarkable. No pleural effusion. No pneumothorax. Heart/Mediastinum: Unremarkable. No cardiomegaly. Bones/joints: Unremarkable. Other findings: Stable postoperative changes over the right shoulder with metallic artifact. XR/XR chest 1V portable [id number] IMPRESSION: No acute findings.
--- NOTE | 2021-11-23 23:42 | ECG_ITS ---
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 Measurements Intervals [place] Rate: 76 P: 62 NC: 218 QRS: -37 QRSD: 119 T: 11 QT: 361 QTc: 406 Interpretive Statements SINUS RHYTHM WITH FIRST DEGREE AV BLOCK LEFT AXIS DEVIATION [QRS AXIS < -30] PATTERN CONSISTENT WITH PULMONARY DISEASE SEPTAL MYOCARDIAL INFARCTION , PROBABLY OLD [40+ ms Q WAVE IN V1/V2] Compared to ECG 10/07/2021 09:44:29 First degree AV block now present Myocardial infarct finding now present Intraventricular conduction delay no longer present T-wave abnormality no longer present Electronically Signed On 11-24-2021 22:25:26 CDT by Gretel Hall M.D. [id number]
--- NOTE | 2021-11-23 23:43 | ED_ITS ---
HPI - Weakness General: Chief complaint: Weakness Stated complaint: dehydration Time Seen by Provider: 11/23/21 23:36 History of Present Illness: 85-year-old female comes in today with no physical complaints. Patient and her daughter were arguing. Patient does not feel that her daughter appreciates her and her daughter no longer wants to take care of her. EMS reported to me that the daughter is older also and has difficulty caring for her mother. The family does not think that they can take care of her anymore. Patient does use routine oxygen. Patient reports that she is able to get up and ambulate and care for herself. Associated symptoms: Denies chest pain, fever(s), nausea or vomiting Review of Systems General: Reports: 10 or more systems reviewed and unremarkable except in HPI and below Const: Denies: fever(s) Card: Denies: chest pain Resp: Reports: dyspnea (Chronic, is on 2 L of oxygen at home) GI: Denies: nausea or vomiting : Denies: difficulty voiding Skin/Breast: Denies: rash PFSH ED PFSH: Medical History Acute metabolic encephalopathy due to hypoglycemia Chronic back pain Chronic kidney disease, stage 3 Chronic renal failure Chronic renal insufficiency COPD (chronic obstructive pulmonary disease) Diabetes mellitus with hypoglycemia DVT prophylaxis Gastroesophageal reflux disease Hyperkalemia Hypertension Physical Exam Const: COMMON NORMALS: alert HENMT: COMMON NORMALS: normocephalic HEAD & SCALP: normocephalic Neck/C-Spine: COMMON NORMALS: full ROM Resp: COMMON NORMALS: normal respiratory effort and clear to auscultation bilaterally AUSCULTATION: clear to auscultation bilaterally Cardio: COMMON NORMALS: regular rate and regular rhythm RATE: regular rate RHYTHM: regular rhythm GI: COMMON NORMALS: Soft to palpation and non-tender PALPATION: Yes Soft to palpation Extremity: COMMON NORMALS: normal to inspection and no pedal edema Neuro: SENSORIUM/ORIENTATION: Yes alert Skin: COMMON NORMALS: no rashes or lesions noted GENERAL SKIN EXAM: no rashes or lesions noted Course Vital Signs: Vital signs: Vital Signs Temperature 98.0 F 11/23/21 23:22 Pulse Rate 74 11/23/21 23:22 Respiratory Rate 16 11/23/21 23:22 Blood Pressure 121/76 11/23/21 23:22 Pulse Oximetry 95 06/20/22 23:22 MDM - Weakness Medical Decision Making 85-year-old female was brought in by EMS for concerns of malaise, weakness, and increased irritability. EMS reported that patient and her daughters were arguing. On exam respirations were even lungs were clear to auscultation. Abdomen was soft. Patient had generalized body aches. No edema was noted in the extremities. Vital signs were normal. Differential diagnosis includes but not limited to urinary tract infection, electrolyte imbalance, pneumonia, major depression. Labs noted a magnesium of 1.3 patient does routinely run low. Urinalysis had a large amount of white blood cells and positive for nitrates. Remainder of labs were near to patient's baseline. Reviewed exam with patient and her daughters reporting urinary tract infection and some mild hypomagnesia. Recommended that we start patient on antibiotics we will cover with doxycycline as her last urine culture did show resistance to multiple medications. I did go ahead and give 1 g of Rocephin in the event that this infection did not have that resistance. Patient will be continued on doxycycline and encourage patient to take magnesium daily. Family reports understanding with need for follow-up with primary care in 3 days for recheck, or return to the ER for worsening symptoms. Lab Data : 11/24/21 00:15 11/24/21 00:15 Radiology Impressions Chest X-Ray 11/23/21 23:40 IMPRESSION: No acute findings. Laboratory Results WBC 7.8 10^3/uL (4.0-10.0) 11/24/21 00:15 RBC 3.28 10^6/uL (4.1-5.3) L 11/24/21 00:15 Hgb 10.2 g/dL (11.5-15.3) L 11/24/21 00:15 Hct 29.6 % (37.0-47.0) L 11/24/21 00:15 MCV 90.2 fl (81-99) 11/24/21 00:15 MCH 31.1 pg (28.0-34.0) 11/24/21 00:15 MCHC 34.5 g/dL (30.0-36.0) 11/24/21 00:15 RDW 14.2 % (12.1-15.1) 11/24/21 00:15 Plt Count 219 10^3/cmm (130-400) 11/24/21 00:15 MPV 12.5 fL (7.4-10.4) H 11/24/21 00:15 Neut % (Auto) 58.0 % 11/24/21 00:15 Lymph % (Auto) 32.1 % 11/24/21 00:15 Chambers % (Auto) 5.3 % 11/24/21 00:15 Eos % (Auto) 3.1 % 11/24/21 00:15 Baso % (Auto) 1.0 % 11/24/21 00:15 Neut # (Auto) 4.51 10^3/uL (1.8-7.7) 11/24/21 00:15 Lymph # (Auto) 2.5 10^3/uL (0.8-4.8) 11/24/21 00:15 Chambers # (Auto) 0.4 10^3/uL (0.2-0.9) 11/24/21 00:15 Eos # (Auto) 0.2 10^3/uL (0.0-0.8) 11/24/21 00:15 Baso # (Auto) 0.1 10^3/uL (0.0-0.1) 11/24/21 00:15 Nucleated RBC % (auto) 0.3 % 11/24/21 00:15 Nucleated RBCs # 0.0 /100WBC 11/24/21 00:15 Poikilocytosis 1+ H 11/24/21 00:15 Anisocytosis 1+ H 11/24/21 00:15 Target Cells 1+ H 11/24/21 00:15 Ovalocytes Trace 11/24/21 00:15 Sodium 132 mmol/L (136-145) L 11/24/21 00:15 Potassium 4.6 mmol/L (3.5-5.1) 11/24/21 00:15 Chloride 101 mmol/L (98-107) 11/24/21 00:15 Carbon Dioxide 17 mmol/L (22-29) L 11/24/21 00:15 Anion Gap 18.6 (5-19) 11/24/21 00:15 BUN 22 mg/dL (8-23) 11/24/21 00:15 Creatinine 2.3 mg/dL (0.5-0.9) H 11/24/21 00:15 GFR Calculation Not Reportable 11/24/21 00:15 Glucose 219 mg/dL (65-115) H 11/24/21 00:15 Calculated Osmolality 284 mOsm/kg (285-295) L 11/24/21 00:15 Calcium 9.3 mg/dL (8.5-10.5) 11/24/21 00:15 Magnesium 1.3 mg/dL (1.7-2.3) L 11/24/21 00:15 Total Bilirubin 0.3 mg/dL (0.15-1.2) 11/24/21 00:15 AST 20 U/L (0-32) 11/24/21 00:15 ALT 9 U/L (0-33) 11/24/21 00:15 Alkaline Phosphatase 105 IU/L (35-105) 11/24/21 00:15 Total Protein 7.9 g/dL (6.6-8.7) 11/24/21 00:15 Albumin 3.9 g/dL (3.5-5.2) 11/24/21 00:15 Globulin 4.0 g/dL (1.3-4.6) 11/24/21 00:15 TSH 1.62 uIU/mL (0.27-4.20) 11/24/21 00:15 Urine Color Yellow (Yellow) 11/24/21 00:55 Urine Appearance Cloudy (CLEAR) 11/24/21 00:55 Urine pH 5 (5-7) 11/24/21 00:55 Ur Specific [place] 1.015 (1.005-1.030) 11/24/21 00:55 Urine Protein Neg (Negative) 11/24/21 00:55 Urine Glucose (UA) 1+ (Normal) H 11/24/21 00:55 Urine Ketones Negative (Negative) 11/24/21 00:55 Urine Blood 2+ (Negative) H 11/24/21 00:55 Urine Nitrate Positive (Negative) H 11/24/21 00:55 Urine Bilirubin Neg (Negative) 11/24/21 00:55 Urine Urobilinogen Norm mg/dL (Negative) 11/24/21 00:55 Ur Leukocyte Esterase 2+ (Negative) H 11/24/21 00:55 Urine RBC 0-4 /hpf (0-2) H 11/24/21 00:55 Urine WBC Too numerous to cnt /hpf (0-5) H 11/24/21 00:55 Ur Squamous Epith Cells 0-4 /hpf (0-5) H 11/24/21 00:55 Amorphous Sediment Not Reportable 11/24/21 00:55 Urine Bacteria 4+ /hpf (NONE) H 11/24/21 00:55 EKG Data EKG 1: EKG interpretation date: 11/24/21 EKG interpretation time: 00:04 Interpretation: EKG shows sinus rhythm with a first-degree AV block. Regular rate at 76 bpm. Computer interprets a left axis deviation and a pattern consistent with pulmonary disease. Prior EKG for comparison is not available. No ST elevation or ectopy is noted. Mild artifact is noted on the rhythm. Discharge Plan Discharge Patient Disposition: Home Clinical Impression: Acute UTI, Hypomagnesemia CKD (chronic kidney disease) Qualifiers: Chronic kidney disease stage: unspecified stage Qualified Code(s): N18.9 - Chronic kidney disease, unspecified Condition: Stable Prescriptions: No Action donepezil 5 mg tablet 5 mg PO BEDTIME 0RF oxybutynin chloride 10 mg tablet extended release 24hr 10 mg PO BEDTIME 0RF triamcinolone acetonide 0.1 % cream 1 applic TOPICAL BID PRN (Reason: Itching) 0RF pantoprazole 40 mg tablet,delayed release (DR/EC) 40 mg PO BID PRN (Reason: see pharmacy comments) 0RF montelukast 10 mg tablet 10 mg PO DAILY 0RF gabapentin 100 mg capsule 200 mg PO BEDTIME 0RF tramadol 50 mg tablet 50 - 100 mg PO TID PRN (Reason: Pain) 0RF citalopram 20 mg tablet 20 mg PO DAILY 0RF metformin 500 mg tablet 500 mg PO BID 0RF glimepiride 2 mg tablet 2 mg PO DAILY 0RF Augmentin 875-125 mg tablet 1 tab PO BID Qty: 28 0RF magnesium oxide 400 mg magnesium capsule 400 mg PO BID Qty: 10 0RF mirtazapine 15 mg tablet 15 mg PO BEDTIME 30 Days Qty: 30 2RF hydrocodone-acetaminophen 5-325 mg tablet 1 tab PO TID PRN (Reason: pain) Qty: 14 0RF Voltaren Arthritis Pain 1 % gel 4 g topical QID Qty: 100 0RF Rx Instructions: apply to single knee, ankle, foot; for foot includes sole/toes/top of foot Discharge Orders: Discharge ED (Routine); Ordered 11/24/21 Ordered By: Gunner Landeros Referrals: Joaquin Paulino MD [Primary Care Provider] - Discharge Diet: Usual diet Discharge Activity: Increase activity as tolerated Activity Restrictions/Additional Instructions: Encourage plenty of fluids. Antibiotics as directed. Follow-up with primary care in 3 days for recheck. Return to the ER for fever greater than 100.4, nausea and vomiting, or new concerns. Coding Level of Care Code ED Clerical Specialist for Chg Fwd Exam Comprehensive
[2021-11-24 00:31] LABS: Basophils # 0.1 10^3/uL (0.0-0.1); Eosinophils # 0.2 10^3/uL (0.0-0.8); Eosinophils % 3.1 %; Hematocrit 29.6 % (37.0-47.0); Hemoglobin 10.2 g/dL (11.5-15.3); Lymphocytes # 2.5 10^3/uL (0.8-4.8); Lymphocytes % 32.1 %; Mean Corpuscular HGB Conc 34.5 g/dL (30.0-36.0); Mean Corpuscular Hemoglobin 31.1 pg (28.0-34.0); Mean Corpuscular Volume 90.2 fl (81-99); Mean Platelet Volume 12.5 fL (7.4-10.4); Monocytes # 0.4 10^3/uL (0.2-0.9); Monocytes % 5.3 %; Neutrophils # 4.51 10^3/uL (1.8-7.7); Nucleated Red Blood Cells % 0.3 %; Platelet Count 219 10^3/cmm (130-400); Red Blood Count 3.28 10^6/uL (4.1-5.3); Red Cell Distribution Width 14.2 % (12.1-15.1); White Blood Count 7.8 10^3/uL (4.0-10.0)
[2021-11-24 00:45] LABS: Add RBC Morph Yes; Slide Review Slide Review Perform
[2021-11-24 00:46] LABS: Anisocytosis 1+; Ovalocytes Trace; Poikilocytosis 1+; RBC Morph Comp No; Target Cells 1+
[2021-11-24 00:47] LABS: Alanine Aminotransferase 9 U/L (0-33); Albumin Level 3.9 g/dL (3.5-5.2); Alkaline Phosphatase 105 IU/L (35-105); Blood Urea Nitrogen 22 mg/dL (8-23); Calcium 9.3 mg/dL (8.5-10.5); Carbon Dioxide 17 mmol/L (22-29); Chloride 101 mmol/L (98-107); Glucose 219 mg/dL (65-115); Magnesium 1.3 mg/dL (1.7-2.3); Osmolality Calculated 284 mOsm/kg (285-295); Sodium 132 mmol/L (136-145); Total Bilirubin 0.3 mg/dL (0.15-1.2); Total Protein 7.9 g/dL (6.6-8.7)
[2021-11-24 00:50] LABS: Anion Gap 18.6 (5-19); Aspartate Amino Transferase 20 U/L (0-32); Potassium 4.6 mmol/L (3.5-5.1)
[2021-11-24 00:56] LABS: Thyroid Stimulating Hormone 1.62 uIU/mL (0.27-4.20)
[2021-11-24 01:23] LABS: Add Urine Culture? Yes; Add Urine Microscopic? YES; Bacteria Urine 4+ /hpf; Bilirubin Urine Neg (Negative); Blood Urine 2+ (Negative); Glucose Urine UA 1+ (Normal); Ketones Urine Negative (Negative); Leukocyte Esterase Urine 2+ (Negative); Nitrate Urine Positive (Negative); Protein Urine Neg (Negative); RBC Urine 0-4 /hpf (0-2); Specific Gravity, Urine 1.015 (1.005-1.030); Squamous Epithelial Cell Urine 0-4 /hpf (0-5); Urine Appearance Cloudy (CLEAR); Urine Color Yellow (Yellow); Urobilinogen Urine Norm (Negative); WBC Urine TOO NUMEROUS TO CNT /hpf (0-5); pH Urine 5 (5-7)
[2021-11-24] MEDS: cefTRIAXone 1,000 MG in lidocaine 1% 2.1 ML 2.5 MG IM (02:17)
[2021-11-24] MEDS: magnesium oxide 400 mg tablet PO (02:17)
[2021-11-24] MEDS: doxycycline 100 mg Tablet PO (02:25)
[2021-11-24 02:50] VITALS: BP 165/90; PULSE 88; RESP 17; TEMP 37.2; O2SAT 98
[2021-11-24 02:51] VITALS: PULSE 88; RESP 17; TEMP 37.2; O2SAT 98
== END 2021-11-24 02:52 | disposition home or self-care (01) ==
PROVIDERS: Emergency Provider Nurse Practitioner Family; PCP Family Medicine
DX: N39.0 Urinary tract infection, site not specified (principal); E83.42 Hypomagnesemia; I12.9 Hypertensive chronic kidney disease with stage 1 through stage 4 chronic kidney disease, or unspecified chronic kidney disease; E11.22 Type 2 diabetes mellitus with diabetic chronic kidney disease; N18.30 Chronic kidney disease, stage 3 unspecified; Z79.84 Long term (current) use of oral hypoglycemic drugs
CPT/HCPCS: 71045; 80053; 81001; 83735; 84443; 85025; 87077; 87086; 87186; 93005; 96372; 99284; J0696

== ENCOUNTER 2021-12-02 20:55 | Emergency (ER) | payer MEDICARE, SELFPAY ==
[2021-12-02 21:19] VITALS: BP 87/65; PULSE 102; RESP 20; TEMP 36.7; O2SAT 100
--- NOTE | 2021-12-02 21:29 | ECG_ITS ---
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 Measurements Intervals [place] Rate: 86 P: 81 SC: 212 QRS: -37 QRSD: 120 T: 77 QT: 368 QTc: 443 Interpretive Statements SINUS RHYTHM WITH FIRST DEGREE AV BLOCK WITH OCCASIONAL SUPRAVENTRICULAR PREMATURE COMPLEXES LEFT AXIS DEVIATION [QRS AXIS < -30] ANTEROSEPTAL MYOCARDIAL INFARCTION , OF INDETERMINATE AGE [40+ ms Q WAVE IN V1-V4] Compared to ECG 11/23/2021 22:57:58 No significant changes Electronically Signed On 12-03-2021 18:56:17 CDT by Aayush Clemente M.D. [id number]
--- NOTE | 2021-12-02 21:29 | XRR_ITS ---
PROCEDURE INFORMATION: Exam: XR Chest Exam date and time: 12/02/2021 10:06 PM Age: 85 years old Clinical indication: Pain; On breathing; Additional info: AMS TECHNIQUE: Imaging protocol: Radiologic exam of the chest. Views: 1 view. COMPARISON: CR (CHEST, ) 11/24/2021 12:00 AM FINDINGS: Lungs: There is chronic peripheral fibrosis in the left lower lobe which is unchanged since the prior film. No acute infiltrate or pleural effusion. Pleural spaces: See Lungs finding. Heart/Mediastinum: Unremarkable. No cardiomegaly. Bones/joints: Chronic right humerus internal fixation. Intraperitoneal space: Multiple chronic surgical clips in the upper abdomen. XR/XR chest 1V portable [id number] IMPRESSION: 1. No acute findings. 2. Chronic left lower lobe peripheral fibrosis
--- NOTE | 2021-12-02 21:29 | CTR_ITS ---
PROCEDURE INFORMATION: Exam: CT Head Without Contrast Exam date and time: 12/02/2021 10:02 PM Age: 85 years old Clinical indication: Altered mental status/memory loss; Additional info: AMS, exam repeated due to patient motion TECHNIQUE: Imaging protocol: Computed tomography of the head without contrast. Radiation optimization: All CT scans at this facility use at least one of these dose optimization techniques: automated exposure control; mA and/or kV adjustment per patient size (includes targeted exams where dose is matched to clinical indication); or iterative reconstruction. COMPARISON: No relevant prior studies available. 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 Also small chronic white matter infarct in the right frontal and parietal white matter and bilaterally in the cerebellum and vermis. Cerebral ventricles: There is moderately severe chronic periventricular microangiopathy accompanied by chronic sulcal widening and ventricular enlargement due to white matter volume loss. Paranasal sinuses: Visualized sinuses are unremarkable. No fluid levels. Mastoid air cells: Visualized mastoid air cells are well aerated. Bones/joints: Unremarkable. No acute fracture. Soft tissues: Unremarkable. Other findings: No CT evidence for acute ischemia, mass or hemorrhage. CT/CT head wo con* [id number] IMPRESSION: 1. No acute intracranial findings. 2. Microangiopathy and atrophy. 3. 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
--- NOTE | 2021-12-02 21:31 | W.ED.AMS ---
Documented by User: Derrick Ballard MD 12/02/21 22:49 HPI - Altered Mental Status General: Chief Complaint: Altered Mental Status Stated Complaint: WEAKNESS Time Seen by Provider: 12/02/21 21:26 History of Present Illness: 85-year-old presents with altered mental status. She has history of dementia and last week was diagnosed with a UTI. According to daughter she has been becoming more difficult to control at home and has not been eating. Patient denies any focal pain. Daughter denies any focal weakness numbness or tingling. She denies fever or rash. States she was prescribed Ativan by primary care today but has not been helping her become more controllable. Review of Systems Narrative: - CONSTITUTIONAL: Denies weight loss, fever and chills. - HEENT: Denies changes in vision and hearing. - RESPIRATORY: Denies SOB and cough. - CV: Denies palpitations and CP. - GI: Denies abdominal pain, nausea, vomiting and diarrhea. - : Denies dysuria and urinary frequency. - MSK: Denies myalgia and joint pain. - SKIN: Denies rash and pruritus. - NEUROLOGICAL: Denies headache, weakness, numbness and syncope. - PSYCHIATRIC: Denies suicidal ideation PFSH ED PFSH: Medical History Acute metabolic encephalopathy due to hypoglycemia Chronic back pain Chronic kidney disease, stage 3 Chronic renal failure Chronic renal insufficiency COPD (chronic obstructive pulmonary disease) Diabetes mellitus with hypoglycemia DVT prophylaxis Gastroesophageal reflux disease Hyperkalemia Hypertension Physical Exam Narrative: - GENERAL: Alert and oriented x 3. No acute distress. Well-nourished. - EYES: EOMI. Anicteric. - HENT: Atraumatic, no C-spine tenderness. Moist mucous membranes. No scleral icterus. No cervical lymphadenopathy. - LUNGS: Clear to auscultation bilaterally. No accessory muscle use. Equal lung sounds bilaterally. No respiratory distress. - CARDIOVASCULAR: Regular rate and rhythm. No murmur. No JVD. - ABDOMEN: Soft, non-tender and non-distended. Negative CVA tenderness bilaterally, no rebound or guarding, negative Angel sign. No palpable masses. - EXTREMITIES: No edema. Non-tender. - SKIN: No rashes or lesions. Warm. - NEUROLOGIC: No meningismus or focal neurological deficits. CN II-XII grossly intact. - PSYCHIATRIC: Cooperative. Appropriate mood and affect. Course Vital Signs: Vital signs: Vital Signs Temperature 98.1 F 12/02/21 21:19 Pulse Rate 99 12/03/21 01:40 Respiratory Rate 16 12/03/21 01:40 Blood Pressure 133/81 12/03/21 01:40 Pulse Oximetry 97 12/03/21 01:40 MDM - Altered Mental Status Medical Decision Making 85-year-old with history of dementia presents due to increased confusion and difficulty to control at home according to daughter. Denies any focal pain or other focal complaint. She recently was treated for UTI. EKG does not show any sign of acute ischemia or other acute abnormality. Lab work and imaging is currently pending. Patient was noted to have mildly low blood pressure and its more ordered blood pressure recheck is pending. Patient signed out to Dr. Nagy. Lab Data : 12/03/21 00:01 12/03/21 00:01 Radiology Impressions Chest X-Ray 12/02/21 21:29 IMPRESSION: 1. No acute findings. 2. Chronic left lower lobe peripheral fibrosis Head CT 12/02/21 21:29 IMPRESSION: 1. No acute intracranial findings. 2. Microangiopathy and atrophy. 3. 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 Laboratory Results WBC 7.6 10^3/uL (4.0-10.0) 12/03/21 00:01 RBC 3.32 10^6/uL (4.1-5.3) L 12/03/21 00:01 Hgb 10.3 g/dL (11.5-15.3) L 12/03/21 00:01 Hct 29.1 % (37.0-47.0) L 12/03/21 00:01 MCV 87.7 fl (81-99) 12/03/21 00:01 MCH 31.0 pg (28.0-34.0) 12/03/21 00:01 MCHC 35.4 g/dL (30.0-36.0) 12/03/21 00:01 RDW 13.4 % (12.1-15.1) 12/03/21 00:01 Plt Count 273 10^3/cmm (130-400) 12/03/21 00:01 MPV 12.4 fL (7.4-10.4) H 12/03/21 00:01 Neut % (Auto) 76.6 % 12/03/21 00:01 Lymph % (Auto) 17.1 % 12/03/21 00:01 [place] % (Auto) 5.1 % 12/03/21 00:01 Eos % (Auto) 0.0 % 12/03/21 00:01 Baso % (Auto) 0.8 % 12/03/21 00:01 Neut # (Auto) 5.83 10^3/uL (1.8-7.7) 12/03/21 00:01 Lymph # (Auto) 1.3 10^3/uL (0.8-4.8) 12/03/21 00:01 [place] # (Auto) 0.4 10^3/uL (0.2-0.9) 12/03/21 00:01 Eos # (Auto) 0.0 10^3/uL (0.0-0.8) 12/03/21 00:01 Baso # (Auto) 0.1 10^3/uL (0.0-0.1) 12/03/21 00:01 Nucleated RBC % (auto) 0 % 12/03/21 00: Nucleated RBCs # 0.0 /100WBC 12/03/21 00:01 Sodium 131 mmol/L (136-145) L 12/03/21 00:01 Potassium 5.1 mmol/L (3.5-5.1) 12/03/21 00:01 Chloride 98 mmol/L (98-107) 12/03/21 00:01 Carbon Dioxide 13 mmol/L (22-29) L 12/03/21 00:01 Anion Gap 25.1 (5-19) H 12/03/21 00:01 BUN 50 mg/dL (8-23) H 12/03/21 00:01 Creatinine 2.8 mg/dL (0.5-0.9) H 12/03/21 00:01 GFR Calculation Not Reportable 12/03/21 00: Glucose 213 mg/dL (65-115) H 12/03/21 00:01 Calculated Osmolality 292 mOsm/kg (285-295) 12/03/21 00:01 Calcium 9.1 mg/dL (8.5-10.5) 12/03/21 00:01 Total Bilirubin 0.6 mg/dL (0.15-1.2) 12/03/21 00:01 AST 20 U/L (0-32) 12/03/21 00:01 ALT 11 U/L (0-33) 12/03/21 00:01 Alkaline Phosphatase 141 IU/L (35-105) H 12/03/21 00:01 Total Protein 7.7 g/dL (6.6-8.7) 12/03/21 00:01 Albumin 3.5 g/dL (3.5-5.2) 12/03/21 00:01 Globulin 4.2 g/dL (1.3-4.6) 12/03/21 00:01 TSH 1.90 uIU/mL (0.27-4.20) 12/03/21 00: Free T4 1.34 ng/dL (0.82-1.77) 12/03/21 00:01 Urine Color Yellow (Yellow) 12/03/21 00:55 Urine Appearance Cloudy (CLEAR) 12/03/21 00:55 Urine pH 5 (5-7) 12/03/21 00:55 Ur Specific [place] 1.020 (1.005-1.030) 12/03/21 00:55 Urine Protein 1+ (Negative) H 12/03/21 00:55 Urine Glucose (UA) Norm (Normal) 12/03/21 00:55 Urine Ketones 1+ (Negative) H 12/03/21 00:55 Urine Blood 3+ (Negative) H 12/03/21 00:55 Urine Nitrate Negative (Negative) 12/03/21 00:55 Urine Bilirubin Neg (Negative) 12/03/21 00:55 Urine Urobilinogen Norm mg/dL (Negative) 12/03/21 00:55 Ur Leukocyte Esterase 2+ (Negative) H 12/03/21 00:55 Urine RBC 0-4 /hpf (0-2) H 12/03/21 00:55 Urine WBC Too numerous to cnt /hpf (0-5) H 12/03/21 00:55 Ur Squamous Epith Cells 0-4 /hpf (0-5) H 12/03/21 00:55 Amorphous Sediment Not Reportable 12/03/21 00:55 Urine Bacteria Trace /hpf (NONE) 12/03/21 00:55 Urine Yeast 4+ /hpf H 12/03/21 00:55 EKG Data EKG 1: Other EKG comments: Sinus rhythm with first-degree AV block, T wave inversion in aVL, no sign of acute ischemia or other acute abnormality. Discharge Plan Discharge Patient Disposition: Home Clinical Impression: Dementia Condition: Stable Prescriptions: No Action donepezil 5 mg tablet 5 mg PO BEDTIME 0RF oxybutynin chloride 10 mg tablet extended release 24hr 10 mg PO BEDTIME 0RF triamcinolone acetonide 0.1 % cream 1 applic TOPICAL BID PRN (Reason: Itching) 0RF pantoprazole 40 mg tablet,delayed release (DR/EC) 40 mg PO BID PRN (Reason: see pharmacy comments) 0RF montelukast 10 mg tablet 10 mg PO DAILY 0RF gabapentin 100 mg capsule 200 mg PO BEDTIME 0RF tramadol 50 mg tablet 50 - 100 mg PO TID PRN (Reason: Pain) 0RF citalopram 20 mg tablet 20 mg PO DAILY 0RF metformin 500 mg tablet 500 mg PO BID 0RF glimepiride 2 mg tablet 2 mg PO DAILY 0RF Augmentin 875-125 mg tablet 1 tab PO BID Qty: 28 0RF magnesium oxide 400 mg magnesium capsule 400 mg PO BID Qty: 10 0RF mirtazapine 15 mg tablet 15 mg PO BEDTIME 30 Days Qty: 30 2RF hydrocodone-acetaminophen 5-325 mg tablet 1 tab PO TID PRN (Reason: pain) Qty: 14 0RF Voltaren Arthritis Pain 1 % gel 4 g topical QID Qty: 100 0RF Rx Instructions: apply to single knee, ankle, foot; for foot includes sole/toes/top of foot doxycycline monohydrate 100 mg capsule 100 mg PO BID 10 Days Qty: 20 0RF magnesium oxide 400 mg magnesium capsule 400 mg PO BID Qty: 60 0RF Discharge Orders: Discharge ED (Routine); Ordered 12/03/21 Ordered By: Leonides Nagy Referrals: Joaquin Paulino MD [Primary Care Provider] - Discharge Diet: Advance as tolerated Discharge Activity: Resume usual activity Patient Instructions: Dementia (ED) Coding Level of Care Code ED Bobbin Presser for Chg Fwd Documented by User: Leonides Nagy MD 12/03/21 01:46 HPI - Altered Mental Status General: Chief Complaint: Altered Mental Status Stated Complaint: WEAKNESS Time Seen by Provider: 12/02/21 21:26 PFSH ED PFSH: Medical History Acute metabolic encephalopathy due to hypoglycemia Chronic back pain Chronic kidney disease, stage 3 Chronic renal failure Chronic renal insufficiency COPD (chronic obstructive pulmonary disease) Diabetes mellitus with hypoglycemia DVT prophylaxis Gastroesophageal reflux disease Hyperkalemia Hypertension Course Vital Signs: Vital signs: Vital Signs Temperature 98.1 F 12/02/21 21:19 Pulse Rate 99 12/03/21 01:40 Respiratory Rate 16 12/03/21 01:40 Blood Pressure 133/81 12/03/21 01:40 Pulse Oximetry 97 12/03/21 01:40 MDM - Altered Mental Status Medical Decision Making 85-year-old with history of dementia presents due to increased confusion and difficulty to control at home according to daughter. Denies any focal pain or other focal complaint. She recently was treated for UTI. EKG does not show any sign of acute ischemia or other acute abnormality. Lab work and imaging is currently pending. Patient was noted to have mildly low blood pressure and its more ordered blood pressure recheck is pending. Patient signed out to Dr. Nagy. Patient presents here with yeast infection along with dementia otherwise well-appearing and stable for discharge back home. Lab Data : 12/03/21 00:01 12/03/21 00:01 Radiology Impressions Chest X-Ray 12/02/21 21:29 IMPRESSION: 1. No acute findings. 2. Chronic left lower lobe peripheral fibrosis Head CT 12/02/21 21:29 IMPRESSION: 1. No acute intracranial findings. 2. Microangiopathy and atrophy. 3. 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 Laboratory Results WBC 7.6 10^3/uL (4.0-10.0) 12/03/21 00:01 RBC 3.32 10^6/uL (4.1-5.3) L 12/03/21 00:01 Hgb 10.3 g/dL (11.5-15.3) L 12/03/21 00:01 Hct 29.1 % (37.0-47.0) L 12/03/21 00:01 MCV 87.7 fl (81-99) 12/03/21 00: MCH 31.0 pg (28.0-34.0) 12/03/21 00: MCHC 35.4 g/dL (30.0-36.0) 12/03/21 00: RDW 13.4 % (12.1-15.1) 12/03/21 00: Plt Count 273 10^3/cmm (130-400) 12/03/21 00: MPV 12.4 fL (7.4-10.4) H 12/03/21 00:01 Neut % (Auto) 76.6 % 12/03/21 00: Lymph % (Auto) 17.1 % 12/03/21 00:01 [place] % (Auto) 5.1 % 12/03/21 00:01 Eos % (Auto) 0.0 % 12/03/21 00:01 Baso % (Auto) 0.8 % 12/03/21 00:01 Neut # (Auto) 5.83 10^3/uL (1.8-7.7) 12/03/21 00:01 Lymph # (Auto) 1.3 10^3/uL (0.8-4.8) 12/03/21 00:01 [place] # (Auto) 0.4 10^3/uL (0.2-0.9) 12/03/21 00:01 Eos # (Auto) 0.0 10^3/uL (0.0-0.8) 12/03/21 00:01 Baso # (Auto) 0.1 10^3/uL (0.0-0.1) 12/03/21 00:01 Nucleated RBC % (auto) 0 % 12/03/21 00:01 Nucleated RBCs # 0.0 /100WBC 12/03/21 00:01 Sodium 131 mmol/L (136-145) L 12/03/21 00:01 Potassium 5.1 mmol/L (3.5-5.1) 12/03/21 00:01 Chloride 98 mmol/L (98-107) 12/03/21 00:01 Carbon Dioxide 13 mmol/L (22-29) L 12/03/21 00: Anion Gap 25.1 (5-19) H 12/03/21 00: BUN 50 mg/dL (8-23) H 12/03/21 00: Creatinine 2.8 mg/dL (0.5-0.9) H 12/03/21 00: GFR Calculation Not Reportable 12/03/21 00: Glucose 213 mg/dL (65-115) H 12/03/21 00: Calculated Osmolality 292 mOsm/kg (285-295) 12/03/21 00: Calcium 9.1 mg/dL (8.5-10.5) 12/03/21 00: Total Bilirubin 0.6 mg/dL (0.15-1.2) 12/03/21 00: AST 20 U/L (0-32) 12/03/21 00: ALT 11 U/L (0-33) 12/03/21 00: Alkaline Phosphatase 141 IU/L (35-105) H 12/03/21 00:01 Total Protein 7.7 g/dL (6.6-8.7) 12/03/21 00: Albumin 3.5 g/dL (3.5-5.2) 12/03/21 00: Globulin 4.2 g/dL (1.3-4.6) 12/03/21 00: TSH 1.90 uIU/mL (0.27-4.20) 12/03/21 00: Free T4 1.34 ng/dL (0.82-1.77) 12/03/21 00:01 Urine Color Yellow (Yellow) 12/03/21 00:55 Urine Appearance Cloudy (CLEAR) 12/03/21 00:55 Urine pH 5 (5-7) 12/03/21 00:55 Ur Specific [place] 1.020 (1.005-1.030) 12/03/21 00:55 Urine Protein 1+ (Negative) H 12/03/21 00:55 Urine Glucose (UA) Norm (Normal) 12/03/21 00: Urine Ketones 1+ (Negative) H 12/03/21 00:55 Urine Blood 3+ (Negative) H 12/03/21 00:55 Urine Nitrate Negative (Negative) 12/03/21 00:55 Urine Bilirubin Neg (Negative) 12/03/21 00:55 Urine Urobilinogen Norm mg/dL (Negative) 12/03/21 00:55 Ur Leukocyte Esterase 2+ (Negative) H 12/03/21 00:55 Urine RBC 0-4 /hpf (0-2) H 12/03/21 00:55 Urine WBC Too numerous to cnt /hpf (0-5) H 12/03/21 00:55 Ur Squamous Epith Cells 0-4 /hpf (0-5) H 12/03/21 00:55 Amorphous Sediment Not Reportable 12/03/21 00:55 Urine Bacteria Trace /hpf (NONE) 12/03/21 00:55 Urine Yeast 4+ /hpf H 12/03/21 00:55 Discharge Plan Discharge Patient Disposition: Home Clinical Impression: Dementia Condition: Stable Prescriptions: No Action donepezil 5 mg tablet 5 mg PO BEDTIME 0RF oxybutynin chloride 10 mg tablet extended release 24hr 10 mg PO BEDTIME 0RF triamcinolone acetonide 0.1 % cream 1 applic TOPICAL BID PRN (Reason: Itching) 0RF pantoprazole 40 mg tablet,delayed release (DR/EC) 40 mg PO BID PRN (Reason: see pharmacy comments) 0RF montelukast 10 mg tablet 10 mg PO DAILY 0RF gabapentin 100 mg capsule 200 mg PO BEDTIME 0RF tramadol 50 mg tablet 50 - 100 mg PO TID PRN (Reason: Pain) 0RF citalopram 20 mg tablet 20 mg PO DAILY 0RF metformin 500 mg tablet 500 mg PO BID 0RF glimepiride 2 mg tablet 2 mg PO DAILY 0RF Augmentin 875-125 mg tablet 1 tab PO BID Qty: 28 0RF magnesium oxide 400 mg magnesium capsule 400 mg PO BID Qty: 10 0RF mirtazapine 15 mg tablet 15 mg PO BEDTIME 30 Days Qty: 30 2RF hydrocodone-acetaminophen 5-325 mg tablet 1 tab PO TID PRN (Reason: pain) Qty: 14 0RF Voltaren Arthritis Pain 1 % gel 4 g topical QID Qty: 100 0RF Rx Instructions: apply to single knee, ankle, foot; for foot includes sole/toes/top of foot doxycycline monohydrate 100 mg capsule 100 mg PO BID 10 Days Qty: 20 0RF magnesium oxide 400 mg magnesium capsule 400 mg PO BID Qty: 60 0RF Discharge Orders: Discharge ED (Routine); Ordered 12/03/21 Ordered By: Leonides Nagy Referrals: Joaquin Paulino MD [Primary Care Provider] - Discharge Diet: Advance as tolerated Discharge Activity: Resume usual activity Patient Instructions: Dementia (ED) Coding Level of Care Code ED Bobbin Presser for Blossom Wilson
--- NOTE | 2021-12-02 21:37 | PC.NURSE ---
Pt was incontinent of stool, skin cleaned, into clean hospital gown. Daughter at bedside
[2021-12-02 22:34] VITALS: PULSE 98; RESP 19; O2SAT 98
[2021-12-02 22:45] VITALS: BP 98/72; PULSE 98; RESP 18; O2SAT 98
[2021-12-02] MEDS: ondansetron 2 mg/ML SDV 2 mL 4 MG IM (23:59)
[2021-12-03 00:08] VITALS: BP 141/100; PULSE 96; RESP 20; O2SAT 98
[2021-12-03 00:10] LABS: Basophils # 0.1 10^3/uL (0.0-0.1); Basophils % 0.8 %; Hematocrit 29.1 % (37.0-47.0); Hemoglobin 10.3 g/dL (11.5-15.3); Lymphocytes # 1.3 10^3/uL (0.8-4.8); Lymphocytes % 17.1 %; Mean Corpuscular HGB Conc 35.4 g/dL (30.0-36.0); Mean Corpuscular Volume 87.7 fl (81-99); Mean Platelet Volume 12.4 fL (7.4-10.4); Monocytes # 0.4 10^3/uL (0.2-0.9); Monocytes % 5.1 %; Neutrophils # 5.83 10^3/uL (1.8-7.7); Neutrophils % 76.6 %; Nucleated Red Blood Cells % 0 %; Platelet Count 273 10^3/cmm (130-400); Red Blood Count 3.32 10^6/uL (4.1-5.3); Red Cell Distribution Width 13.4 % (12.1-15.1); White Blood Count 7.6 10^3/uL (4.0-10.0)
[2021-12-03 00:31] LABS: Alanine Aminotransferase 11 U/L (0-33); Albumin Level 3.5 g/dL (3.5-5.2); Alkaline Phosphatase 141 IU/L (35-105); Anion Gap 25.1 (5-19); Blood Urea Nitrogen 50 mg/dL (8-23); Calcium 9.1 mg/dL (8.5-10.5); Carbon Dioxide 13 mmol/L (22-29); Chloride 98 mmol/L (98-107); Globulin 4.2 g/dL (1.3-4.6); Glucose 213 mg/dL (65-115); Osmolality Calculated 292 mOsm/kg (285-295); Potassium 5.1 mmol/L (3.5-5.1); Sodium 131 mmol/L (136-145); Total Bilirubin 0.6 mg/dL (0.15-1.2); Total Protein 7.7 g/dL (6.6-8.7)
[2021-12-03 00:32] LABS: Aspartate Amino Transferase 20 U/L (0-32)
[2021-12-03 00:37] LABS: Free T4 Free Thyroxine 1.34 ng/dL (0.82-1.77)
[2021-12-03 01:13] LABS: Bilirubin Urine Neg (Negative); Blood Urine 3+ (Negative); Glucose Urine UA Norm (Normal); Ketones Urine 1+ (Negative); Leukocyte Esterase Urine 2+ (Negative); Nitrate Urine Negative (Negative); Protein Urine 1+ (Negative); RBC Urine 0-4 /hpf (0-2); Squamous Epithelial Cell Urine 0-4 /hpf (0-5); Urine Appearance Cloudy (CLEAR); Urine Color Yellow (Yellow); Urobilinogen Urine Norm (Negative); WBC Urine TOO NUMEROUS TO CNT /hpf (0-5); pH Urine 5 (5-7)
[2021-12-03 01:14] LABS: Add Urine Culture? Yes; Bacteria Urine TRACE /hpf
[2021-12-03] MEDS: fluconazole 100 mg Tablet 150 MG PO (01:37)
[2021-12-03 01:40] VITALS: BP 133/81; PULSE 99; RESP 16; O2SAT 97
[2021-12-03 01:47] VITALS: BP 133/81; PULSE 99; RESP 16; O2SAT 97
== END 2021-12-03 01:48 | disposition home or self-care (01) ==
PROVIDERS: Emergency Medicine; Emergency Provider Emergency Medicine; PCP Family Medicine
DX: F03.90 Unspecified dementia, unspecified severity, without behavioral disturbance, psychotic disturbance, mood disturbance, and anxiety (principal); Z79.84 Long term (current) use of oral hypoglycemic drugs; E11.22 Type 2 diabetes mellitus with diabetic chronic kidney disease; I12.9 Hypertensive chronic kidney disease with stage 1 through stage 4 chronic kidney disease, or unspecified chronic kidney disease; N18.30 Chronic kidney disease, stage 3 unspecified; J44.9 Chronic obstructive pulmonary disease, unspecified
CPT/HCPCS: 70450; 71045; 80053; 81001; 84439; 84443; 85025; 87086; 87106; 93005; 96372; 99285; J2405